=== PATIENT | female | born 1955 | race Caucasian/White ===

== ENCOUNTER 2016-06-28 19:47 | Inpatient (IN) | payer MEDICAID ==
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
[2016-06-28] MEDS ORDERED: NS 1000 ML 1,000 ML IV ONE (20:44)
[2016-06-28] MEDS ORDERED: ZOFRAN INJ 4 MG VIAL IVP ONE (20:44)
[2016-06-28] MEDS ORDERED: ZOFRAN INJ 4 MG VIAL ONE (20:45)
[2016-06-28] MEDS ORDERED: NS 1000 ML 1,000 ML ONE (20:45)
[2016-06-28 20:51] LABS: BILIRUBIN,URINE NEGATIVE (NEGATIVE); BLOOD/HEMOGLOBIN,URINE 3+ (NEGATIVE); GLUCOSE, URINE NEGATIVE (NEGATIVE); KETONES,URINE NEGATIVE (NEGATIVE); LEUKOCYTE ESTERASE ,URINE 2+ (NEGATIVE); NITRITES,URINE POSITIVE (NEGATIVE); PROTEIN,URINE 4+ (NEGATIVE); UROBILINOGEN,URINE NORMAL (NORMAL)
[2016-06-28 20:52] LABS: APPEARANCE,URINE CLOUDY (CLEAR); COLOR,URINE YELLOW (YELLOW)
[2016-06-28 21:02] LABS: AMORPHOUS SEDIMENT,UR 1+ /HPF (NEGATIVE); BACTERIA,URINE 2+ /HPF (NEGATIVE); SQUAMOUS EPITHELIAL CELL,UR FEW /HPF (NEGATIVE)
--- NOTE | 2016-06-28 21:27 | CT ---
EXAM: CT BRAIN WITHOUT CONTRAST INDICATION: Altered mental status COMPARISION: No Priors TECHNIQUE: Routine axial CT of the brain was performed without intravenous contrast. FINDINGS: There is moderate bilateral cortical atrophy. Patchy areas of low-attenuation are identified in the periventricular white matter bilaterally. There are multiple small lacunar infarcts in the right bas al ganglia . There is an area of encephalomalacia in the right occipital lobe consistent with a prev ious infarct. The ventricular system is not abnormally dilated. No intra or extra-axial mass or hemo rrhage. The drew-white junction is preserved. There is no evidence of subacute ischemic change. The basilar cisterns are clear. The skull is intact. The paranasal sinuses and mastoid air cells are clear. IMPRESSION: There is bilateral cortical atrophy. Periventricular and subcortical white matter changes are presen t bilaterally consistent with advanced small vessel vasculopathy. Old right basal ganglia lacunar infarcts an old right occipital lobe infarct with encephalomalacia a re present and described above. No acute abnormality identified. Reported By:
[2016-06-28 21:42] LABS: BASOPHILS % (AUTO) 0.2 % (0.2-1.0); HEMATOCRIT 30.9 % (36.0-47.0); HEMOGLOBIN 10.1 g/dL (12.0-16.0); MEAN CORPUSCULAR VOLUME 99.1 fL (80.0-100.0); MONOCYTES # (AUTO) 1.1 x10^3/uL (0.3-0.8); RED BLOOD COUNT 3.11 X10^6/uL (3.5-5.4); RED CELL DISTRIBUTION WIDTH 13.9 % (11.6-16.5)
[2016-06-28 21:48] LABS: LYMPHOCYTES # (AUTO) 1.7 X10^3/uL (1.3-2.9); LYMPHOCYTES % (AUTO) 8.9 % (21.0-51.0); MEAN CORPUSCULAR HEMOGLOBIN 32.5 pg (27.0-34.0); MEAN CORPUSCULAR HGB CONC 32.8 g/dL (33.0-35.0); MEAN PLATELET VOLUME 8.4 fL (7.4-11.0); MONOCYTES % (AUTO) 5.8 % (0.0-13.0); NEUTROPHILS # (AUTO) 16.6 x10^3/uL (2.2-4.8); NEUTROPHILS % (AUTO) 85.1 % (42.0-75.0); PLATELET COUNT 265 X10^3/uL (150.0-450.0); WHITE BLOOD COUNT 19.5 X10^3/uL (3.6-10.0)
[2016-06-28 22:00] LABS: ALBUMIN 2.5 g/dL (3.4-5.0); CALCIUM 9.5 mg/dL (8.5-10.1); CARBON DIOXIDE 21.8 mmol/L (21-32); COR CA(FOR HYPOALB) 10.7 mg/dL (8.5-10.1); CREATININE 3.23 mg/dL (0.55-1.02); TOTAL PROTEIN 6.7 g/dL (6.4-8.2)
[2016-06-28] MEDS ORDERED: NS 50 ML IV + SPIKE MINIBAG* 50 ML IV ONE (23:10)
[2016-06-28] MEDS ORDERED: FORTAZ or TAZICEF INJ ONE (23:10)
[2016-06-28] MEDS ORDERED: TORADOL 30 MG VIAL ONE (23:11)
[2016-06-28] MEDS ORDERED: TORADOL 30 MG VIAL IVP ONE (23:11)
[2016-06-28] MEDS ORDERED: TYLENOL 500 MG TAB EXTRA STRENGTH PO ONE (23:11)
[2016-06-28] MEDS: NS 1000 ML 1,000 ML IV SCH (23:12)
[2016-06-28] MEDS: FORTAZ or TAZICEF INJ 1 GM in NS 50 ML IV + SPIKE MINIBAG* 50 ML IV SCH (23:12)
[2016-06-28] MEDS ORDERED: TYLENOL 500 MG TAB EXTRA STRENGTH ONE (23:14)
--- NOTE | 2016-06-28 23:36 | RAD ---
EXAM: Chest X-ray INDICATION: Fever COMPARISION: Prior exam performed on September 27, 2015 TECHNIQUE: AP, single view FINDINGS: There is consolidation in the left lower lobe. The right lung is clear. The heart and mediastinum ap pear unremarkable. The regional skeleton is intact. IMPRESSION: Findings consistent left lower lobe pneumonia. Followup is recommended. Reported By:
[2016-06-29] MEDS ORDERED: TUSSIONEX PENNKINETIC SUSP PO PRN (00:30)
[2016-06-29] MEDS ORDERED: ZITHROMAX INJ 500 MG VIAL 500 MG in NS 250 ML IV 250 ML IV SCH (00:43)
[2016-06-29] MEDS ORDERED: SALINE 3% 15 ML NEB TX ONE (01:09)
[2016-06-29] MEDS ORDERED: SALINE 3% 15 ML NEB TX NEB ONE (01:17)
[2016-06-29] MEDS: DUONEB 0.5 MG/3 MG NEB SCH ×7 (01:22→21:48)
[2016-06-29 02:07] VITALS: BMI 19.5
[2016-06-29] MEDS ORDERED: ZITHROMAX INJ 500 MG VIAL IV ONE (02:08)
[2016-06-29] MEDS ORDERED: NS 250 ML IV 250 ML IV ONE (02:08)
[2016-06-29] MEDS: FORTAZ or TAZICEF INJ 1 GM in NS 50 ML IV + SPIKE MINIBAG* 50 ML IV SCH (06:24)
[2016-06-29 06:26] LABS: BASOPHILS % (AUTO) 0.3 % (0.2-1.0); HEMATOCRIT 28.6 % (36.0-47.0); HEMOGLOBIN 9.6 g/dL (12.0-16.0); LYMPHOCYTES # (AUTO) 2.2 X10^3/uL (1.3-2.9); MEAN CORPUSCULAR HGB CONC 33.4 g/dL (33.0-35.0); MEAN CORPUSCULAR VOLUME 98.7 fL (80.0-100.0); MEAN PLATELET VOLUME 8.7 fL (7.4-11.0); MONOCYTES # (AUTO) 0.7 x10^3/uL (0.3-0.8); MONOCYTES % (AUTO) 4.2 % (0.0-13.0); NEUTROPHILS # (AUTO) 13.7 x10^3/uL (2.2-4.8); NEUTROPHILS % (AUTO) 82.5 % (42.0-75.0); PLATELET COUNT 232 X10^3/uL (150.0-450.0); WHITE BLOOD COUNT 16.6 X10^3/uL (3.6-10.0)
[2016-06-29 06:53] LABS: CALCIUM 8.8 mg/dL (8.5-10.1); CARBON DIOXIDE 19.7 mmol/L (21-32); COR CA(FOR HYPOALB) 10.4 mg/dL (8.5-10.1); CREATININE 3.32 mg/dL (0.55-1.02); TOTAL PROTEIN 5.9 g/dL (6.4-8.2)
[2016-06-29 07:25] LABS: BAND NEUTROPHILS % 15 % (0-10); PLATELET MORPHOLOGY COMMENT NORMAL (NORMAL)
[2016-06-29] MEDS ORDERED: POTASSIUM CHLORIDE PO SCH (09:45)
[2016-06-29] MEDS: ROBITUSSIN DM PO SCH ×4 (09:50→21:27)
[2016-06-29] MEDS: ZANTAC PO SCH (09:50)
[2016-06-29] MEDS: PAXIL PO SCH (09:50)
[2016-06-29] MEDS: NORVASC TAB 5 MG PO SCH (09:50)
[2016-06-29] MEDS: ASPIRIN EC 81 MG PO SCH (09:50)
[2016-06-29] MEDS: PATIENT'S HOME MEDICATION SCH (09:51)
[2016-06-29] MEDS: NS 1000 ML 1,000 ML IV SCH ×2 (11:06→15:22)
[2016-06-29] MEDS ORDERED: TYLENOL 500 MG TAB EXTRA STRENGTH ONE (13:19)
[2016-06-29] MEDS ORDERED: TYLENOL 500 MG TAB EXTRA STRENGTH PO ONE (13:25)
[2016-06-29] MEDS: NICODERM PATCH 21 MG/24 HR TD SCH (15:22)
[2016-06-29] MEDS: TYLENOL 325 MG TAB PO PRN (19:33)
[2016-06-29] MEDS: ZITHROMAX INJ 500 MG VIAL 500 MG in NS 250 ML IV 250 ML IV SCH (21:26)
[2016-06-29] MEDS: CHECK PATCH XX SCH (21:29)
[2016-06-30] MEDS: DUONEB 0.5 MG/3 MG NEB SCH ×3 (01:09→08:31)
[2016-06-30] MEDS: NS 1000 ML 1,000 ML IV SCH ×4 (01:42→15:18)
[2016-06-30] MEDS: TYLENOL 325 MG TAB PO PRN ×4 (01:42→20:58)
[2016-06-30 05:24] LABS: BASOPHILS # (AUTO) 0.1 X10^3/uL (0.0-0.1); BASOPHILS % (AUTO) 0.3 % (0.2-1.0); HEMATOCRIT 27.3 % (36.0-47.0); LYMPHOCYTES # (AUTO) 1.7 X10^3/uL (1.3-2.9); LYMPHOCYTES % (AUTO) 8.4 % (21.0-51.0); MEAN CORPUSCULAR HEMOGLOBIN 32.4 pg (27.0-34.0); MEAN CORPUSCULAR HGB CONC 32.9 g/dL (33.0-35.0); MEAN CORPUSCULAR VOLUME 98.7 fL (80.0-100.0); MEAN PLATELET VOLUME 8.8 fL (7.4-11.0); MONOCYTES # (AUTO) 0.7 x10^3/uL (0.3-0.8); MONOCYTES % (AUTO) 3.5 % (0.0-13.0); NEUTROPHILS # (AUTO) 17.6 x10^3/uL (2.2-4.8); NEUTROPHILS % (AUTO) 87.8 % (42.0-75.0); PLATELET COUNT 243 X10^3/uL (150.0-450.0); RED BLOOD COUNT 2.77 X10^6/uL (3.5-5.4); RED CELL DISTRIBUTION WIDTH 14.5 % (11.6-16.5)
[2016-06-30 05:40] LABS: ALANINE AMINOTRANSFERASE 26 Units/L (12-78); ALBUMIN 1.8 g/dL (3.4-5.0); ALKALINE PHOSPHATASE 68 Units/L (46-116); ASPARTATE AMINO TRANSFERASE 23 Units/L (15-37); BLOOD UREA NITROGEN 46 mg/dL (7-18); CARBON DIOXIDE 18.6 mmol/L (21-32); CHLORIDE 113 mmol/L (98-107); COR CA(FOR HYPOALB) 9.8 mg/dL (8.5-10.1); CREATININE 2.99 mg/dL (0.55-1.02); GLUCOSE 97 mg/dL (65-99); SODIUM 144 mmol/L (136-145); eGFR BLACK RACES 21 (>60); eGFR NON BLACK RACES 17 (>60)
[2016-06-30] MEDS: ROBITUSSIN DM PO SCH ×4 (08:14→20:57)
[2016-06-30] MEDS: MICRO K EXTEN CAP 10 MEQ PO SCH (08:14)
[2016-06-30] MEDS: NORVASC TAB 5 MG PO SCH (08:14)
[2016-06-30] MEDS: ASPIRIN EC 81 MG PO SCH (08:14)
[2016-06-30] MEDS: PAXIL PO SCH (08:14)
[2016-06-30] MEDS: ZANTAC PO SCH (08:14)
[2016-06-30] MEDS: NICODERM PATCH 21 MG/24 HR TD SCH (08:15)
[2016-06-30] MEDS: CHECK PATCH XX SCH ×2 (08:21→20:56)
[2016-06-30] MEDS: PATIENT'S HOME MEDICATION SCH (08:29)
[2016-06-30] MEDS ORDERED: FORTAZ or TAZICEF INJ 1 GM in NS 50 ML IV + SPIKE MINIBAG* 50 ML IV SCH (09:00)
[2016-06-30] MEDS: COREG TAB 12.5 MG PO SCH ×2 (10:11→20:57)
[2016-06-30] MEDS: LYRICA CAP 100 MG PO SCH ×2 (11:06→20:58)
[2016-06-30] MEDS: XOPENEX 1.25 MG/3 ML NEB SCH ×3 (12:04→21:45)
[2016-06-30] MEDS ORDERED: LASIX IVP ONE (16:15)
[2016-06-30] MEDS: ZITHROMAX INJ 500 MG VIAL 500 MG in NS 250 ML IV 250 ML IV SCH (20:56)
[2016-06-30] MEDS: NS 1000 ML 1,000 ML IV PRN (22:21)
[2016-07-01] MEDS: XOPENEX 1.25 MG/3 ML NEB SCH ×4 (08:36→20:59)
[2016-07-01] MEDS ORDERED: TYGACIL 50 MG VIAL 100 MG in NS 100 ML IV 100 ML IV ONE (09:53)
[2016-07-01] MEDS: ZANTAC PO SCH (10:17)
[2016-07-01] MEDS: MICRO K EXTEN CAP 10 MEQ PO SCH (10:18)
[2016-07-01] MEDS: ROBITUSSIN DM PO SCH ×4 (10:18→20:21)
[2016-07-01] MEDS: ASPIRIN EC 81 MG PO SCH (10:18)
[2016-07-01] MEDS: PAXIL PO SCH (10:18)
[2016-07-01] MEDS: LYRICA CAP 100 MG PO SCH ×2 (10:18→20:21)
[2016-07-01] MEDS: NORVASC TAB 5 MG PO SCH (10:18)
[2016-07-01] MEDS: CHECK PATCH XX SCH ×2 (10:20→20:27)
[2016-07-01] MEDS: PATIENT'S HOME MEDICATION SCH (10:20)
[2016-07-01] MEDS: NICODERM PATCH 21 MG/24 HR TD SCH (10:26)
[2016-07-01] MEDS: NS 1000 ML 1,000 ML IV PRN ×2 (15:01→18:47)
[2016-07-01] MEDS: TYLENOL 325 MG TAB PO PRN ×2 (15:35→21:39)
[2016-07-01] MEDS: TYGACIL 50 MG VIAL 50 MG in NS 100 ML IV 100 ML IV SCH (18:55)
[2016-07-01] MEDS: ZITHROMAX INJ 500 MG VIAL 500 MG in NS 250 ML IV 250 ML IV SCH (20:21)
[2016-07-02 05:25] LABS: BASOPHILS # (AUTO) 0.1 X10^3/uL (0.0-0.1); BASOPHILS % (AUTO) 0.4 % (0.2-1.0); EOSINOPHILS % (AUTO) 0.2 % (0.9-2.9); HEMATOCRIT 28.6 % (36.0-47.0); HEMOGLOBIN 9.6 g/dL (12.0-16.0); LYMPHOCYTES # (AUTO) 2.4 X10^3/uL (1.3-2.9); LYMPHOCYTES % (AUTO) 12.6 % (21.0-51.0); MEAN CORPUSCULAR HEMOGLOBIN 32.7 pg (27.0-34.0); MEAN CORPUSCULAR HGB CONC 33.5 g/dL (33.0-35.0); MEAN CORPUSCULAR VOLUME 97.4 fL (80.0-100.0); MEAN PLATELET VOLUME 8.6 fL (7.4-11.0); MONOCYTES # (AUTO) 1.5 x10^3/uL (0.3-0.8); NEUTROPHILS # (AUTO) 14.9 x10^3/uL (2.2-4.8); NEUTROPHILS % (AUTO) 78.8 % (42.0-75.0); PLATELET COUNT 293 X10^3/uL (150.0-450.0); RED BLOOD COUNT 2.94 X10^6/uL (3.5-5.4); RED CELL DISTRIBUTION WIDTH 14.6 % (11.6-16.5)
[2016-07-02 05:37] LABS: ALBUMIN 1.8 g/dL (3.4-5.0); CALCIUM 7.7 mg/dL (8.5-10.1); CARBON DIOXIDE 16.6 mmol/L (21-32); COR CA(FOR HYPOALB) 9.5 mg/dL (8.5-10.1); CREATININE 2.69 mg/dL (0.55-1.02); TOTAL PROTEIN 6.3 g/dL (6.4-8.2)
[2016-07-02 06:10] LABS: BAND NEUTROPHILS % 2 % (0-10)
[2016-07-02 06:11] LABS: PLATELET MORPHOLOGY COMMENT NORMAL (NORMAL)
--- NOTE | 2016-07-02 08:05 | RAD ---
HISTORY: Pneumonia Study: Two views of the chest Comparison: 06/28/2016 Findings: Worsen reticular nodular opacities are seen throughout the bilateral lungs, most prominent in the le ft lower lobe and right upper lobe. There is suggestion of small mobile effusion on the right side v ersus atelectasis. No pneumothorax. The cardiac and mediastinal contours are stable. Soft tissues ar e intact. IMPRESSION: 1. Worsened bilateral reticular nodular opacities most prominent in the left lower lobe and right up per lobe. Findings suggest worsening pneumonia, consider atypical etiologies. Reported By:
[2016-07-02] MEDS: XOPENEX 1.25 MG/3 ML NEB SCH ×4 (08:47→20:31)
[2016-07-02] MEDS: NICODERM PATCH 21 MG/24 HR TD SCH (09:24)
[2016-07-02] MEDS: MICRO K EXTEN CAP 10 MEQ PO SCH (09:25)
[2016-07-02] MEDS: ROBITUSSIN DM PO SCH ×4 (09:25→21:10)
[2016-07-02] MEDS: LYRICA CAP 100 MG PO SCH ×2 (09:26→21:11)
[2016-07-02] MEDS: PAXIL PO SCH (09:26)
[2016-07-02] MEDS: ASPIRIN EC 81 MG PO SCH (09:27)
[2016-07-02] MEDS: NORVASC TAB 5 MG PO SCH (09:27)
[2016-07-02] MEDS: CHECK PATCH XX SCH ×2 (09:28→21:11)
[2016-07-02] MEDS: ZANTAC PO SCH (09:30)
[2016-07-02] MEDS: PATIENT'S HOME MEDICATION SCH (09:31)
[2016-07-02] MEDS: TYGACIL 50 MG VIAL 50 MG in NS 100 ML IV 100 ML IV SCH ×2 (09:32→21:11)
[2016-07-02] MEDS: TYLENOL 325 MG TAB PO PRN ×3 (09:42→23:05)
[2016-07-02] MEDS: NS 1000 ML 1,000 ML IV PRN (21:09)
[2016-07-02] MEDS: ZITHROMAX INJ 500 MG VIAL 500 MG in NS 250 ML IV 250 ML IV SCH (21:10)
[2016-07-03 05:31] LABS: ALBUMIN 1.8 g/dL (3.4-5.0); CALCIUM 7.6 mg/dL (8.5-10.1); CARBON DIOXIDE 17.2 mmol/L (21-32); COR CA(FOR HYPOALB) 9.4 mg/dL (8.5-10.1); CREATININE 2.83 mg/dL (0.55-1.02); TOTAL PROTEIN 6.6 g/dL (6.4-8.2)
[2016-07-03] MEDS: MAALOX or MYLANTA PO PRN ×2 (05:31→23:15)
[2016-07-03 06:34] LABS: BASOPHILS # (AUTO) 0.1 X10^3/uL (0.0-0.1); BASOPHILS % (AUTO) 0.5 % (0.2-1.0); EOSINOPHILS # (AUTO) 0.1 x10^3/uL (0.0-0.2); EOSINOPHILS % (AUTO) 0.6 % (0.9-2.9); HEMATOCRIT 30.1 % (36.0-47.0); HEMOGLOBIN 9.9 g/dL (12.0-16.0); LYMPHOCYTES # (AUTO) 3.3 X10^3/uL (1.3-2.9); LYMPHOCYTES % (AUTO) 15.7 % (21.0-51.0); MEAN CORPUSCULAR HEMOGLOBIN 32.5 pg (27.0-34.0); MEAN CORPUSCULAR HGB CONC 33.1 g/dL (33.0-35.0); MEAN CORPUSCULAR VOLUME 98.2 fL (80.0-100.0); MEAN PLATELET VOLUME 8.8 fL (7.4-11.0); MONOCYTES # (AUTO) 1.8 x10^3/uL (0.3-0.8); MONOCYTES % (AUTO) 8.7 % (0.0-13.0); NEUTROPHILS # (AUTO) 15.8 x10^3/uL (2.2-4.8); NEUTROPHILS % (AUTO) 74.5 % (42.0-75.0); PLATELET COUNT 337 X10^3/uL (150.0-450.0); RED BLOOD COUNT 3.06 X10^6/uL (3.5-5.4); RED CELL DISTRIBUTION WIDTH 14.6 % (11.6-16.5)
[2016-07-03 06:46] LABS: WHITE BLOOD COUNT 21.1 X10^3/uL (3.6-10.0)
[2016-07-03 07:07] LABS: BAND NEUTROPHILS % 2 % (0-10); PLATELET MORPHOLOGY COMMENT NORMAL (NORMAL)
[2016-07-03] MEDS: XOPENEX 1.25 MG/3 ML NEB SCH ×4 (09:37→20:32)
[2016-07-03] MEDS: TYGACIL 50 MG VIAL 50 MG in NS 100 ML IV 100 ML IV SCH ×2 (10:13→21:49)
[2016-07-03] MEDS: ROBITUSSIN DM PO SCH ×4 (10:14→21:50)
[2016-07-03] MEDS: NICODERM PATCH 21 MG/24 HR TD SCH (10:14)
[2016-07-03] MEDS: ZANTAC PO SCH (10:14)
[2016-07-03] MEDS: ASPIRIN EC 81 MG PO SCH (10:15)
[2016-07-03] MEDS: MICRO K EXTEN CAP 10 MEQ PO SCH (10:15)
[2016-07-03] MEDS: PAXIL PO SCH (10:15)
[2016-07-03] MEDS: LYRICA CAP 100 MG PO SCH ×2 (10:16→21:51)
[2016-07-03] MEDS: NORVASC TAB 5 MG PO SCH (10:16)
[2016-07-03] MEDS: PATIENT'S HOME MEDICATION SCH (10:16)
[2016-07-03] MEDS: CHECK PATCH XX SCH ×2 (10:17→22:00)
[2016-07-03] MEDS: TYLENOL 325 MG TAB PO PRN ×3 (10:22→22:06)
[2016-07-03] MEDS: NS 1000 ML 1,000 ML IV PRN (18:33)
[2016-07-03] MEDS: ZITHROMAX INJ 500 MG VIAL 500 MG in NS 250 ML IV 250 ML IV SCH (21:50)
[2016-07-04] MEDS: MAALOX or MYLANTA PO PRN ×3 (04:07→21:04)
[2016-07-04] MEDS: TYLENOL 325 MG TAB PO PRN ×4 (04:08→23:00)
[2016-07-04] MEDS: NS 1000 ML 1,000 ML IV PRN ×2 (04:09→21:09)
[2016-07-04 05:53] LABS: ALBUMIN 1.8 g/dL (3.4-5.0); CALCIUM 7.4 mg/dL (8.5-10.1); CARBON DIOXIDE 18.1 mmol/L (21-32); COR CA(FOR HYPOALB) 9.2 mg/dL (8.5-10.1); CREATININE 2.55 mg/dL (0.55-1.02); TOTAL PROTEIN 6.2 g/dL (6.4-8.2)
[2016-07-04 05:57] LABS: BASOPHILS # (AUTO) 0.1 X10^3/uL (0.0-0.1); BASOPHILS % (AUTO) 0.4 % (0.2-1.0); EOSINOPHILS # (AUTO) 0.2 x10^3/uL (0.0-0.2); HEMATOCRIT 28.8 % (36.0-47.0); HEMOGLOBIN 9.5 g/dL (12.0-16.0); LYMPHOCYTES # (AUTO) 3.1 X10^3/uL (1.3-2.9); LYMPHOCYTES % (AUTO) 16.1 % (21.0-51.0); MEAN CORPUSCULAR HEMOGLOBIN 32.4 pg (27.0-34.0); MEAN CORPUSCULAR HGB CONC 33.2 g/dL (33.0-35.0); MEAN CORPUSCULAR VOLUME 97.8 fL (80.0-100.0); MEAN PLATELET VOLUME 8.8 fL (7.4-11.0); MONOCYTES # (AUTO) 1.6 x10^3/uL (0.3-0.8); MONOCYTES % (AUTO) 8.4 % (0.0-13.0); NEUTROPHILS # (AUTO) 14.2 x10^3/uL (2.2-4.8); NEUTROPHILS % (AUTO) 74.1 % (42.0-75.0); PLATELET COUNT 359 X10^3/uL (150.0-450.0); RED BLOOD COUNT 2.94 X10^6/uL (3.5-5.4); RED CELL DISTRIBUTION WIDTH 14.6 % (11.6-16.5); WHITE BLOOD COUNT 19.2 X10^3/uL (3.6-10.0)
[2016-07-04 07:01] LABS: BAND NEUTROPHILS % 2 % (0-10); PLATELET MORPHOLOGY COMMENT NORMAL (NORMAL)
[2016-07-04] MEDS: XOPENEX 1.25 MG/3 ML NEB SCH ×4 (08:26→21:02)
--- NOTE | 2016-07-04 08:50 | PCM.PROG ---
Progress Note - Progress Note for Day of Date: 07/04/16 - Subjective Subjective: Patient is doing well this am. Her potassium is still low we are going to check a magnesium and continue potassium replacement. Her WBC is also still elevated we are going to continue IV antibiotics and repeat labs in the AM and perform a chest xray to evaluate her pneumonia - Past Medical Family Social History Past Med/Fam/Surg Hx: No changes since H&P Allergies: Allergies Codeine Allergy (Verified 06/28/16 20:08) Penicillin G Allergy (Verified 06/28/16 20:08) Promethazine [From Phenergan] Allergy (Verified 06/28/16 20:08) - Review of Systems ROS: No change since H&P - Vital Signs and I&O's Vital Signs: Temperature 98.3 F Pulse Rate [Left Brachial] 89 Pulse Rate [Brachial] 75 Pulse Rate 79 Respiratory Rate 22 Blood Pressure [Left Arm] 161/75 O2 Sat by Pulse Oximetry 90 Intake and Output: Intake & Output 07/01/16 07/02/16 07/03/16 07/04/16 11:59 11:59 11:59 11:59 Intake Total 3250 1910 6199 1960 Output Total 1100 3400 6000 4400 Balance 2150 -1490 199 -2440 - Physical Exam Oriented: Normal Eyes: Normal Ear: Normal Nose: Normal Throat: Normal Respiratory: Normal Cardiovascular: Normal : Normal Auscultation: Bowel Sounds: Normal Palpation: Normal Tenderness: Normal Skin: Normal Musculoskeletal: Normal Psychiatric: Normal Mood Description: Calm Affect: Normal Speech Pattern: Clear, Appropriate - Laboratory and Diagnostics Result Diagrams: 07/04/16 03:38 07/04/16 03:38 Labs: 06/29/16 22:26 Sputum - Expectorated Sputum Sputum Culture - Final 06/29/16 22:26 Sputum - Expectorated Sputum - Final Laboratory WBC 19.2 X10^3/uL (3.6-10.0) H 07/04/16 03:38 RBC 2.94 X10^6/uL (3.5-5.4) L 07/04/16 03:38 Hgb 9.5 g/dL (12.0-16.0) L 07/04/16 03:38 Hct 28.8 % (36.0-47.0) L 07/04/16 03:38 MCV 97.8 fL (80.0-100.0) 07/04/16 03:38 MCH 32.4 pg (27.0-34.0) 07/04/16 03:38 MCHC 33.2 g/dL (33.0-35.0) 07/04/16 03:38 RDW 14.6 % (11.6-16.5) 07/04/16 03:38 Plt Count 359 X10^3/uL (150.0-450.0) 07/04/16 03:38 Plt Count Comment Adequate (ADEQUATE) 07/04/16 03:38 MPV 8.8 fL (7.4-11.0) 07/04/16 03:38 Neut % 74.1 % (42.0-75.0) 07/04/16 03:38 Lymph % 16.1 % (21.0-51.0) L 07/04/16 03:38 [place] % 8.4 % (0.0-13.0) 07/04/16 03:38 Eos % 1.0 % (0.9-2.9) 07/04/16 03:38 Baso % 0.4 % (0.2-1.0) 07/04/16 03:38 Neut # 14.2 x10^3/uL (2.2-4.8) H 07/04/16 03:38 Lymph # 3.1 X10^3/uL (1.3-2.9) H 07/04/16 03:38 [place] # 1.6 x10^3/uL (0.3-0.8) H 07/04/16 03:38 Eos # 0.2 x10^3/uL (0.0-0.2) 07/04/16 03:38 Baso # 0.1 X10^3/uL (0.0-0.1) 07/04/16 03:38 Absolute Nucleated RBC 0.0 /100WBC 07/04/16 03:38 Total Counted 100 07/04/16 03:38 Neutrophils % (Manual) 72 % (39-76) 07/04/16 03:38 Band Neutrophils % 2 % (0-10) 07/04/16 03:38 Lymphocytes % (Manual) 14 % (13-43) 07/04/16 03:38 Monocytes % (Manual) 8 % (4-9) 07/04/16 03:38 Eosinophils % (Manual) 4 % (0-6) 07/04/16 03:38 Plt Morphology Comment Normal (NORMAL) 07/04/16 03:38 RBC Morphology Normal (NORMAL) 07/04/16 03:38 Sodium 146 mmol/L (136-145) H 07/04/16 03:38 Corrected Sodium 147 mmol/L (136-145) H 07/04/16 03:38 Potassium 3.0 mmol/L (3.5-5.1) L* 07/04/16 03:38 Chloride 112 mmol/L (98-107) H 07/04/16 03:38 Carbon Dioxide 18.1 mmol/L (21-32) L 07/04/16 03:38 BUN 53 mg/dL (7-18) H 07/04/16 03:38 Creatinine 2.55 mg/dL (0.55-1.02) H 07/04/16 03:38 Est GFR (MDRD) Af Amer 25 (>60) L 07/04/16 03:38 Est GFR (MDRD) Non-Af 20 (>60) L 07/04/16 03:38 Glucose 154 mg/dL (65-99) H 07/04/16 03:38 Calcium 7.4 mg/dL (8.5-10.1) L 07/04/16 03:38 Corrected Calcium 9.2 mg/dL (8.5-10.1) 07/04/16 03:38 Total Bilirubin 0.20 mg/dL (0.2-1.0) 07/04/16 03:38 AST 14 Units/L (15-37) L 07/04/16 03:38 ALT 19 Units/L (12-78) 07/04/16 03:38 Alkaline Phosphatase 108 Units/L (46-116) 07/04/16 03:38 Total Protein 6.2 g/dL (6.4-8.2) L 07/04/16 03:38 Albumin 1.8 g/dL (3.4-5.0) L 07/04/16 03:38 Globulin 4.4 g/dL (2.5-4.5) 07/04/16 03:38 Albumin/Globulin Ratio 0.4 Ratio (1.1-2.1) L 07/04/16 03:38 Amylase 28 Units/L (25-115) 06/28/16 21:20 Lipase 57 Units/L (73-393) L 06/28/16 21:20 Specimen Type Catherized urine 06/28/16 20:22 Urine Color Yellow (YELLOW) 06/28/16 20:22 Urine Appearance Cloudy (CLEAR) 06/28/16 20:22 Urine pH 6.0 (5.0 - 8.0) 06/28/16 20:22 Ur Specific [place] 1.010 (1.000-1.030) 06/28/16 20:22 Urine Protein 4+ (NEGATIVE) 06/28/16 20:22 Urine Glucose (UA) Negative (NEGATIVE) 06/28/16 20:22 Urine Ketones Negative (NEGATIVE) 06/28/16 20:22 Urine Occult Blood 3+ (NEGATIVE) 06/28/16 20:22 Urine Nitrite Positive (NEGATIVE) 06/28/16 20:22 Urine Bilirubin Negative (NEGATIVE) 06/28/16 20:22 Urine Urobilinogen Normal (NORMAL) 06/28/16 20:22 Ur Leukocyte Esterase 2+ (NEGATIVE) 06/28/16 20:22 Urine RBC 01 - 03 /HPF (NEGATIVE) 06/28/16 20:22 Urine WBC 20 - 35 with clumps /HPF (NEGATIVE) 06/28/16 20:22 Ur Squamous Epith Cells Few /HPF (NEGATIVE) 06/28/16 20:22 Amorphous Sediment 1+ /HPF (NEGATIVE) 06/28/16 20:22 Urine Bacteria 2+ /HPF (NEGATIVE) 06/28/16 20:22 Ur Culture Indicated? Yes/culture set up 06/28/16 20:22 Influenza A (H1N1) PCR Not detected (NOT DETECT) 06/28/16 21:42 Influenza Type A (PCR) Negative (NEGATIVE) 06/28/16 21:42 Influenza Type B (PCR) Negative (NEGATIVE) 06/28/16 21:42 - Plan (1) Hypokalemia Status: Acute Plan: check magnesium and continue potassium replacement protocol (2) LLL pneumonia Status: Acute Qualifiers: Pneumonia type: due to unspecified organism Aspiration pneumonia type: A Qualified Code(s): J18.1 - Lobar pneumonia, unspecified organism Plan: continue IV Antibiotics, Repeat labs in and chest xray
[2016-07-04] MEDS: NORVASC TAB 5 MG PO SCH (10:03)
[2016-07-04] MEDS: LYRICA CAP 100 MG PO SCH ×2 (10:03→21:03)
[2016-07-04] MEDS: ROBITUSSIN DM PO SCH ×4 (10:04→21:03)
[2016-07-04] MEDS: TYGACIL 50 MG VIAL 50 MG in NS 100 ML IV 100 ML IV SCH ×2 (10:04→21:04)
[2016-07-04] MEDS: PAXIL PO SCH (10:04)
[2016-07-04] MEDS: MICRO K EXTEN CAP 10 MEQ PO SCH (10:04)
[2016-07-04] MEDS: ASPIRIN EC 81 MG PO SCH (10:04)
[2016-07-04] MEDS: NICODERM PATCH 21 MG/24 HR TD SCH (10:05)
[2016-07-04] MEDS: PATIENT'S HOME MEDICATION SCH (10:05)
[2016-07-04] MEDS: CHECK PATCH XX SCH ×2 (10:05→21:05)
[2016-07-04] MEDS: ZANTAC PO SCH (10:10)
[2016-07-04] MEDS: K-DUR TAB 20 MEQ PO SCH (15:27)
[2016-07-04] MEDS: ZITHROMAX INJ 500 MG VIAL 500 MG in NS 250 ML IV 250 ML IV SCH (21:04)
[2016-07-05] MEDS: MAALOX or MYLANTA PO PRN ×3 (01:20→19:41)
[2016-07-05 06:30] LABS: BASOPHILS # (AUTO) 0.1 X10^3/uL (0.0-0.1); BASOPHILS % (AUTO) 0.7 % (0.2-1.0); EOSINOPHILS # (AUTO) 0.3 x10^3/uL (0.0-0.2); EOSINOPHILS % (AUTO) 1.8 % (0.9-2.9); HEMATOCRIT 25.8 % (36.0-47.0); HEMOGLOBIN 8.7 g/dL (12.0-16.0); LYMPHOCYTES # (AUTO) 3.7 X10^3/uL (1.3-2.9); MEAN CORPUSCULAR HEMOGLOBIN 32.7 pg (27.0-34.0); MEAN CORPUSCULAR HGB CONC 33.7 g/dL (33.0-35.0); MEAN CORPUSCULAR VOLUME 96.9 fL (80.0-100.0); MEAN PLATELET VOLUME 8.4 fL (7.4-11.0); MONOCYTES # (AUTO) 1.1 x10^3/uL (0.3-0.8); MONOCYTES % (AUTO) 6.7 % (0.0-13.0); NEUTROPHILS # (AUTO) 11.7 x10^3/uL (2.2-4.8); NEUTROPHILS % (AUTO) 68.8 % (42.0-75.0); PLATELET COUNT 354 X10^3/uL (150.0-450.0); RED BLOOD COUNT 2.66 X10^6/uL (3.5-5.4); RED CELL DISTRIBUTION WIDTH 14.3 % (11.6-16.5)
[2016-07-05 06:47] LABS: ALANINE AMINOTRANSFERASE 18 Units/L (12-78); ALBUMIN 1.6 g/dL (3.4-5.0); ALKALINE PHOSPHATASE 120 Units/L (46-116); ASPARTATE AMINO TRANSFERASE 17 Units/L (15-37); BLOOD UREA NITROGEN 55 mg/dL (7-18); CALCIUM 7.2 mg/dL (8.5-10.1); CARBON DIOXIDE 18.3 mmol/L (21-32); CHLORIDE 114 mmol/L (98-107); COR CA(FOR HYPOALB) 9.1 mg/dL (8.5-10.1); CREATININE 2.49 mg/dL (0.55-1.02); GLUCOSE 94 mg/dL (65-99); MAGNESIUM 1.8 mg/dL (1.7-2.9); SODIUM 145 mmol/L (136-145); TOTAL PROTEIN 5.5 g/dL (6.4-8.2); eGFR BLACK RACES 25 (>60); eGFR NON BLACK RACES 21 (>60)
[2016-07-05 07:37] LABS: BAND NEUTROPHILS % 3 % (0-10)
[2016-07-05 07:38] LABS: METAMYELOCYTES % 1; PLATELET MORPHOLOGY COMMENT NORMAL (NORMAL)
[2016-07-05] MEDS: ASPIRIN EC 81 MG PO SCH (08:37)
[2016-07-05] MEDS: LYRICA CAP 100 MG PO SCH ×2 (08:37→20:40)
[2016-07-05] MEDS: PAXIL PO SCH (08:37)
[2016-07-05] MEDS: TYGACIL 50 MG VIAL 50 MG in NS 100 ML IV 100 ML IV SCH ×2 (08:37→19:41)
[2016-07-05] MEDS: NORVASC TAB 5 MG PO SCH (08:37)
[2016-07-05] MEDS: ZANTAC PO SCH (08:38)
[2016-07-05] MEDS: ROBITUSSIN DM PO SCH ×4 (08:38→20:42)
[2016-07-05] MEDS: NICODERM PATCH 21 MG/24 HR TD SCH (08:38)
[2016-07-05] MEDS: K-DUR TAB 20 MEQ PO SCH (08:38)
[2016-07-05] MEDS: TYLENOL 325 MG TAB PO PRN ×3 (08:38→23:00)
[2016-07-05] MEDS: CHECK PATCH XX SCH ×2 (08:39→20:41)
[2016-07-05] MEDS: PATIENT'S HOME MEDICATION SCH (08:39)
[2016-07-05] MEDS: XOPENEX 1.25 MG/3 ML NEB SCH ×4 (08:50→20:22)
--- NOTE | 2016-07-05 13:01 | RAD ---
HISTORY: Pneumonia Study: Two-view chest Comparison: July 02, 2016 Findings: The trachea is midline. The cardiac silhouette is unremarkable. Lungs demonstrate persistent inter stitial infiltrates slightly improved in the right upper and left upper lobes. There is persistent l eft lower lobe airspace opacity with small effusion which is unchanged.. The bony thorax is unremar kable. IMPRESSION: 1. Improved interstitial infiltrates in the upper lobes with persistent left lower lobe airspace di sease and small effusion Reported By:
[2016-07-05] MEDS: ZITHROMAX INJ 500 MG VIAL 500 MG in NS 250 ML IV 250 ML IV SCH (20:40)
[2016-07-05] MEDS: ZOFRAN INJ 4 MG VIAL IVP PRN (23:16)
[2016-07-06 05:59] LABS: BASOPHILS # (AUTO) 0.2 X10^3/uL (0.0-0.1); BASOPHILS % (AUTO) 0.9 % (0.2-1.0); EOSINOPHILS # (AUTO) 0.2 x10^3/uL (0.0-0.2); EOSINOPHILS % (AUTO) 0.9 % (0.9-2.9); HEMATOCRIT 24.2 % (36.0-47.0); HEMOGLOBIN 8.2 g/dL (12.0-16.0); LYMPHOCYTES # (AUTO) 3.6 X10^3/uL (1.3-2.9); MEAN CORPUSCULAR HEMOGLOBIN 32.8 pg (27.0-34.0); MEAN CORPUSCULAR HGB CONC 33.9 g/dL (33.0-35.0); MEAN CORPUSCULAR VOLUME 96.7 fL (80.0-100.0); MEAN PLATELET VOLUME 8.6 fL (7.4-11.0); MONOCYTES % (AUTO) 5.6 % (0.0-13.0); NEUTROPHILS # (AUTO) 12.3 x10^3/uL (2.2-4.8); NEUTROPHILS % (AUTO) 71.6 % (42.0-75.0); PLATELET COUNT 370 X10^3/uL (150.0-450.0); RED BLOOD COUNT 2.51 X10^6/uL (3.5-5.4); RED CELL DISTRIBUTION WIDTH 14.2 % (11.6-16.5); WHITE BLOOD COUNT 17.2 X10^3/uL (3.6-10.0)
[2016-07-06 06:22] LABS: ALBUMIN 1.5 g/dL (3.4-5.0); CALCIUM 7.5 mg/dL (8.5-10.1); CARBON DIOXIDE 20.9 mmol/L (21-32); COR CA(FOR HYPOALB) 9.5 mg/dL (8.5-10.1); CREATININE 2.47 mg/dL (0.55-1.02); TOTAL PROTEIN 5.4 g/dL (6.4-8.2)
[2016-07-06] MEDS: NORVASC TAB 5 MG PO SCH (08:47)
[2016-07-06] MEDS: ZOFRAN INJ 4 MG VIAL IVP PRN ×3 (08:47→21:57)
[2016-07-06] MEDS: K-DUR TAB 20 MEQ PO SCH (08:47)
[2016-07-06] MEDS: NICODERM PATCH 21 MG/24 HR TD SCH (08:47)
[2016-07-06] MEDS: ASPIRIN EC 81 MG PO SCH (08:47)
[2016-07-06] MEDS: LYRICA CAP 100 MG PO SCH ×2 (08:47→21:14)
[2016-07-06] MEDS: ROBITUSSIN DM PO SCH ×6 (08:47→21:12)
[2016-07-06] MEDS: ZANTAC PO SCH (08:47)
[2016-07-06] MEDS: PAXIL PO SCH (08:47)
[2016-07-06] MEDS: TYGACIL 50 MG VIAL 50 MG in NS 100 ML IV 100 ML IV SCH ×2 (08:48→19:55)
[2016-07-06] MEDS: XOPENEX 1.25 MG/3 ML NEB SCH ×4 (08:50→20:40)
[2016-07-06] MEDS: PATIENT'S HOME MEDICATION SCH (09:00)
[2016-07-06] MEDS: CHECK PATCH XX SCH ×2 (09:00→21:15)
[2016-07-06] MEDS: NS 1000 ML 1,000 ML IV PRN (15:57)
[2016-07-06] MEDS: TYLENOL 325 MG TAB PO PRN (19:56)
[2016-07-06] MEDS: ZITHROMAX INJ 500 MG VIAL 500 MG in NS 250 ML IV 250 ML IV SCH (21:09)
[2016-07-07] MEDS: TYLENOL 325 MG TAB PO PRN ×3 (03:30→21:44)
[2016-07-07] MEDS: XOPENEX 1.25 MG/3 ML NEB SCH ×4 (08:37→20:55)
[2016-07-07] MEDS: PATIENT'S HOME MEDICATION SCH (09:00)
[2016-07-07] MEDS: ROBITUSSIN DM PO SCH ×4 (09:39→21:44)
[2016-07-07] MEDS: TYGACIL 50 MG VIAL 50 MG in NS 100 ML IV 100 ML IV SCH ×2 (09:39→21:43)
[2016-07-07] MEDS: NICODERM PATCH 21 MG/24 HR TD SCH (09:40)
[2016-07-07] MEDS: K-DUR TAB 20 MEQ PO SCH (09:41)
[2016-07-07] MEDS: LYRICA CAP 100 MG PO SCH ×2 (09:41→21:44)
[2016-07-07] MEDS: ASPIRIN EC 81 MG PO SCH (09:42)
[2016-07-07] MEDS: PAXIL PO SCH (09:42)
[2016-07-07] MEDS: NORVASC TAB 5 MG PO SCH (09:42)
[2016-07-07] MEDS: ZANTAC PO SCH (09:42)
[2016-07-07] MEDS: CHECK PATCH XX SCH ×2 (10:00→21:44)
[2016-07-07] MEDS: NS 1000 ML 1,000 ML IV PRN (11:41)
[2016-07-07] MEDS: MAALOX or MYLANTA PO PRN (17:25)
[2016-07-07] MEDS: ZITHROMAX INJ 500 MG VIAL 500 MG in NS 250 ML IV 250 ML IV SCH (21:44)
[2016-07-08] MEDS: ZOFRAN INJ 4 MG VIAL IVP PRN (00:38)
[2016-07-08] MEDS: MAALOX or MYLANTA PO PRN (00:38)
[2016-07-08] MEDS: NS 1000 ML 1,000 ML IV PRN (04:09)
[2016-07-08] MEDS: TYLENOL 325 MG TAB PO PRN ×2 (05:05→10:39)
[2016-07-08 05:16] LABS: BASOPHILS # (AUTO) 0.2 X10^3/uL (0.0-0.1); EOSINOPHILS # (AUTO) 0.2 x10^3/uL (0.0-0.2); EOSINOPHILS % (AUTO) 1.1 % (0.9-2.9); HEMATOCRIT 25.3 % (36.0-47.0); HEMOGLOBIN 8.5 g/dL (12.0-16.0); LYMPHOCYTES # (AUTO) 3.9 X10^3/uL (1.3-2.9); LYMPHOCYTES % (AUTO) 24.6 % (21.0-51.0); MEAN CORPUSCULAR HEMOGLOBIN 32.4 pg (27.0-34.0); MEAN CORPUSCULAR HGB CONC 33.7 g/dL (33.0-35.0); MEAN PLATELET VOLUME 8.6 fL (7.4-11.0); NEUTROPHILS # (AUTO) 10.8 x10^3/uL (2.2-4.8); NEUTROPHILS % (AUTO) 67.3 % (42.0-75.0); PLATELET COUNT 435 X10^3/uL (150.0-450.0); RED BLOOD COUNT 2.63 X10^6/uL (3.5-5.4); RED CELL DISTRIBUTION WIDTH 14.2 % (11.6-16.5); WHITE BLOOD COUNT 16.1 X10^3/uL (3.6-10.0)
[2016-07-08 05:29] LABS: ALANINE AMINOTRANSFERASE 33 Units/L (12-78); ALBUMIN 1.6 g/dL (3.4-5.0); ALKALINE PHOSPHATASE 178 Units/L (46-116); ASPARTATE AMINO TRANSFERASE 35 Units/L (15-37); BLOOD UREA NITROGEN 47 mg/dL (7-18); CALCIUM 7.9 mg/dL (8.5-10.1); CARBON DIOXIDE 21.1 mmol/L (21-32); CHLORIDE 114 mmol/L (98-107); COR CA(FOR HYPOALB) 9.8 mg/dL (8.5-10.1); CREATININE 2.91 mg/dL (0.55-1.02); GLUCOSE 91 mg/dL (65-99); SODIUM 145 mmol/L (136-145); TOTAL PROTEIN 5.8 g/dL (6.4-8.2); eGFR BLACK RACES 21 (>60); eGFR NON BLACK RACES 18 (>60)
--- NOTE | 2016-07-08 07:01 | RAD ---
HISTORY: Follow up pneumonia Study: Chest two-view Comparison: July 05, 2016 Findings: The heart is within normal limits in size. The cora are normal. The right lung and left upper lung f ields are clear. Perihilar infiltrate remains in the left lower lobe. Left pleural effusion is sligh tly increased when compared with the prior examination. IMPRESSION: Right lung clear as is the left upper lobe Persistent left perihilar lower lobe infiltrate with slight increase left pleural effusion Reported By:
[2016-07-08] MEDS: XOPENEX 1.25 MG/3 ML NEB SCH (08:49)
[2016-07-08] MEDS: K-DUR TAB 20 MEQ PO SCH (09:09)
[2016-07-08] MEDS: LYRICA CAP 100 MG PO SCH (09:09)
[2016-07-08] MEDS: PAXIL PO SCH (09:09)
[2016-07-08] MEDS: NICODERM PATCH 21 MG/24 HR TD SCH (09:09)
[2016-07-08] MEDS: ZANTAC PO SCH (09:10)
[2016-07-08] MEDS: TYGACIL 50 MG VIAL 50 MG in NS 100 ML IV 100 ML IV SCH (09:10)
[2016-07-08] MEDS: ASPIRIN EC 81 MG PO SCH (09:10)
[2016-07-08] MEDS: ROBITUSSIN DM PO SCH (09:10)
[2016-07-08] MEDS: NORVASC TAB 5 MG PO SCH (09:10)
[2016-07-08 09:14] VITALS: BP 158/77
[2016-07-08] MEDS: PATIENT'S HOME MEDICATION SCH (09:16)
[2016-07-08] MEDS: CHECK PATCH XX SCH (09:17)
[2016-07-08] MEDS ORDERED: COREG TAB 25 MG PO SCH (10:00)
== END 2016-07-08 12:35 | disposition home or self-care (01) | DRG 193 ==
LOC: ER 19:47 → MED/SURG 06-29 00:07
PROVIDERS: ADMIT Internal Medicine; ATTEND Obstetrics & Gynecology Obstetrics
DX: J18.1 Lobar pneumonia, unspecified organism (principal); J81.0 Acute pulmonary edema; N10 Acute pyelonephritis; J44.1 Chronic obstructive pulmonary disease with (acute) exacerbation; R40.4 Transient alteration of awareness; E86.0 Dehydration; R11.2 Nausea with vomiting, unspecified; R53.1 Weakness; I10 Essential (primary) hypertension; N28.89 Other specified disorders of kidney and ureter; R94.4 Abnormal results of kidney function studies; D72.828 Other elevated white blood cell count; E87.6 Hypokalemia; R06.02 Shortness of breath; D63.8 Anemia in other chronic diseases classified elsewhere; B96.29 Other Escherichia coli [E. coli] as the cause of diseases classified elsewhere
CPT/HCPCS: 36415; 51702; 70450; 71010; 71020; 80053; 81001; 82150; 83690; 83735; 85025; 87040; 87070; 87086; 87088; 87186; 87205; 87502; 87503; 94640; 94760; 96365; 96367; 96374; 96375; 99233; 99284; A4222; J0456; J0713; J1885; J1940; J2405; J7620

== ENCOUNTER → 2016-12-30 | Outpatient (CLI) | payer MEDICAID ==
[2016-12-30 12:38] LABS: BASOPHILS % (AUTO) 0.5 % (0.2-1.0); EOSINOPHILS # (AUTO) 0.1 x10^3/uL (0.0-0.2); EOSINOPHILS % (AUTO) 1.2 % (0.9-2.9); HEMATOCRIT 35.4 % (36.0-47.0); LYMPHOCYTES # (AUTO) 2.6 X10^3/uL (1.3-2.9); LYMPHOCYTES % (AUTO) 28.7 % (21.0-51.0); MEAN CORPUSCULAR HEMOGLOBIN 34.5 pg (27.0-34.0); MEAN CORPUSCULAR HGB CONC 33.9 g/dL (33.0-35.0); MEAN CORPUSCULAR VOLUME 101.8 fL (80.0-100.0); MEAN PLATELET VOLUME 7.7 fL (7.4-11.0); MONOCYTES # (AUTO) 0.6 x10^3/uL (0.3-0.8); MONOCYTES % (AUTO) 6.2 % (0.0-13.0); NEUTROPHILS # (AUTO) 5.7 x10^3/uL (2.2-4.8); NEUTROPHILS % (AUTO) 63.4 % (42.0-75.0); PLATELET COUNT 415 X10^3/uL (150.0-450.0); RED BLOOD COUNT 3.48 X10^6/uL (3.5-5.4); RED CELL DISTRIBUTION WIDTH 14.7 % (11.6-16.5)
[2016-12-30 12:53] LABS: ALANINE AMINOTRANSFERASE 13 Units/L (12-78); ALBUMIN 3.5 g/dL (3.4-5.0); ALKALINE PHOSPHATASE 58 Units/L (46-116); ASPARTATE AMINO TRANSFERASE 11 Units/L (15-37); BLOOD UREA NITROGEN 48 mg/dL (7-18); CALCIUM 11.7 mg/dL (8.5-10.1); CARBON DIOXIDE 22.1 mmol/L (21-32); CHLORIDE 109 mmol/L (98-107); CREATININE 3.87 mg/dL (0.55-1.02); MAGNESIUM 1.6 mg/dL (1.7-2.9); SODIUM 143 mmol/L (136-145); TOTAL PROTEIN 7.6 g/dL (6.4-8.2); eGFR BLACK RACES 15 (>60); eGFR NON BLACK RACES 13 (>60)
== END ==
LOC: LAB 11:50
PROVIDERS: ATTEND Obstetrics & Gynecology Obstetrics
DX: M62.838 Other muscle spasm (principal); R79.89 Other specified abnormal findings of blood chemistry
CPT/HCPCS: 36415; 80053; 82330; 82728; 83735; 85025

== ENCOUNTER 2017-05-08 16:12 | Observation (INO) | payer MEDICAID ==
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
[2017-05-08 17:05] LABS: BASOPHILS # (AUTO) 0.1 X10^3/uL (0.0-0.1); BASOPHILS % (AUTO) 0.7 % (0.2-1.0); EOSINOPHILS # (AUTO) 0.2 x10^3/uL (0.0-0.2); EOSINOPHILS % (AUTO) 1.7 % (0.9-2.9); HEMATOCRIT 35.2 % (36.0-47.0); HEMOGLOBIN 11.7 g/dL (12.0-16.0); LYMPHOCYTES # (AUTO) 2.7 X10^3/uL (1.3-2.9); LYMPHOCYTES % (AUTO) 22.4 % (21.0-51.0); MEAN CORPUSCULAR HEMOGLOBIN 34.2 pg (27.0-34.0); MEAN CORPUSCULAR HGB CONC 33.2 g/dL (33.0-35.0); MEAN CORPUSCULAR VOLUME 102.9 fL (80.0-100.0); MEAN PLATELET VOLUME 8.4 fL (7.4-11.0); MONOCYTES # (AUTO) 0.9 x10^3/uL (0.3-0.8); MONOCYTES % (AUTO) 7.6 % (0.0-13.0); NEUTROPHILS # (AUTO) 8.2 x10^3/uL (2.2-4.8); NEUTROPHILS % (AUTO) 67.6 % (42.0-75.0); PLATELET COUNT 323 X10^3/uL (150.0-450.0); RED BLOOD COUNT 3.42 X10^6/uL (3.5-5.4); RED CELL DISTRIBUTION WIDTH 14.6 % (11.6-16.5); WHITE BLOOD COUNT 12.1 X10^3/uL (3.6-10.0)
[2017-05-08 17:12] LABS: ALANINE AMINOTRANSFERASE 15 Units/L (12-78); ALBUMIN 3.6 g/dL (3.4-5.0); ALKALINE PHOSPHATASE 80 Units/L (46-116); ASPARTATE AMINO TRANSFERASE 16 Units/L (15-37); BLOOD UREA NITROGEN 42 mg/dL (7-18); CALCIUM 10.5 mg/dL (8.5-10.1); CARBON DIOXIDE 18.2 mmol/L (21-32); CHLORIDE 108 mmol/L (98-107); CREATININE 3.77 mg/dL (0.55-1.02); SODIUM 140 mmol/L (136-145); TOTAL PROTEIN 7.6 g/dL (6.4-8.2); eGFR BLACK RACES 16 (>60); eGFR NON BLACK RACES 13 (>60)
--- NOTE | 2017-05-08 17:21 | RAD ---
History: Abdominal pain Study: Acute abdominal series Findings: The lungs are clear and the heart and mediastinum are unremarkable. There is no pleural eff usion or vascular congestion. The bowel gas pattern is unremarkable. There is no free air. There is heavy atherosclerotic calcifica tion in the wall of the abdominal aorta and common iliac arteries without aneurysmal dilatation. Impression: No acute disease demonstrated Reported By:
[2017-05-08] MEDS ORDERED: NS 1000 ML 1,000 ML IV ONE (17:34)
[2017-05-08] MEDS ORDERED: NS 1000 ML 1,000 ML ONE (17:35)
[2017-05-08 18:03] LABS: BILIRUBIN,URINE NEGATIVE (NEGATIVE); BLOOD/HEMOGLOBIN,URINE 1+ (NEGATIVE); GLUCOSE, URINE NEGATIVE (NEGATIVE); KETONES,URINE NEGATIVE (NEGATIVE); LEUKOCYTE ESTERASE ,URINE 2+ (NEGATIVE); NITRITES,URINE POSITIVE (NEGATIVE); PROTEIN,URINE 4+ (NEGATIVE); UROBILINOGEN,URINE NORMAL (NORMAL)
[2017-05-08 18:21] LABS: APPEARANCE,URINE HAZY (CLEAR); BACTERIA,URINE 2+ /HPF (NEGATIVE); COLOR,URINE YELLOW (YELLOW); SQUAMOUS EPITHELIAL CELL,UR FEW /HPF (NEGATIVE)
[2017-05-08] MEDS ORDERED: TYLENOL 500 MG TAB EXTRA STRENGTH PO PRN (19:15)
[2017-05-08] MEDS ORDERED: GENTAMICIN INJ 80 MG in NS 100 ML IV 100 ML IV ONE (19:19)
[2017-05-08] MEDS ORDERED: NS 100 ML IV 100 ML IV ONE (19:41)
[2017-05-08] MEDS ORDERED: GENTAMICIN INJ ONE (19:41)
[2017-05-08] MEDS: NS 1000 ML 1,000 ML IV SCH (19:49)
[2017-05-08] MEDS ORDERED: CIPRO IV 400 MG PREMIX* 400 MG/200 ML IV.SOLN. IV SCH (21:00)
[2017-05-08 22:01] VITALS: BMI 17.6
[2017-05-08] MEDS ORDERED: MAALOX or MYLANTA PO PRN (22:03)
[2017-05-08] MEDS ORDERED: VISTARIL PO PRN (22:22)
[2017-05-09] MEDS: NS 1000 ML 1,000 ML IV SCH ×3 (02:00→08:50)
[2017-05-09] MEDS ORDERED: ZOFRAN INJ 4 MG VIAL IVP PRN (03:10)
[2017-05-09 06:38] LABS: BASOPHILS # (AUTO) 0.1 X10^3/uL (0.0-0.1); BASOPHILS % (AUTO) 0.5 % (0.2-1.0); EOSINOPHILS # (AUTO) 0.2 x10^3/uL (0.0-0.2); EOSINOPHILS % (AUTO) 1.7 % (0.9-2.9); HEMATOCRIT 30.7 % (36.0-47.0); HEMOGLOBIN 10.3 g/dL (12.0-16.0); LYMPHOCYTES # (AUTO) 3.3 X10^3/uL (1.3-2.9); LYMPHOCYTES % (AUTO) 29.1 % (21.0-51.0); MEAN CORPUSCULAR HEMOGLOBIN 34.6 pg (27.0-34.0); MEAN CORPUSCULAR HGB CONC 33.7 g/dL (33.0-35.0); MEAN CORPUSCULAR VOLUME 102.5 fL (80.0-100.0); MEAN PLATELET VOLUME 8.6 fL (7.4-11.0); MONOCYTES # (AUTO) 0.9 x10^3/uL (0.3-0.8); MONOCYTES % (AUTO) 8.3 % (0.0-13.0); NEUTROPHILS # (AUTO) 6.8 x10^3/uL (2.2-4.8); NEUTROPHILS % (AUTO) 60.4 % (42.0-75.0); PLATELET COUNT 307 X10^3/uL (150.0-450.0); RED BLOOD COUNT 2.99 X10^6/uL (3.5-5.4); RED CELL DISTRIBUTION WIDTH 14.8 % (11.6-16.5); WHITE BLOOD COUNT 11.2 X10^3/uL (3.6-10.0)
[2017-05-09 06:53] LABS: ALANINE AMINOTRANSFERASE 14 Units/L (12-78); ALKALINE PHOSPHATASE 66 Units/L (46-116); ASPARTATE AMINO TRANSFERASE 17 Units/L (15-37); BLOOD UREA NITROGEN 32 mg/dL (7-18); CALCIUM 8.6 mg/dL (8.5-10.1); CARBON DIOXIDE 16.3 mmol/L (21-32); CHLORIDE 112 mmol/L (98-107); COR CA(FOR HYPOALB) 9.4 mg/dL (8.5-10.1); CREATININE 3.05 mg/dL (0.55-1.02); SODIUM 142 mmol/L (136-145); TOTAL PROTEIN 6.5 g/dL (6.4-8.2); eGFR BLACK RACES 20 (>60); eGFR NON BLACK RACES 17 (>60)
[2017-05-09 09:24] VITALS: BP 166/80
== END 2017-05-09 09:15 | disposition left against medical advice (07) ==
LOC: ER 16:12 → MED/SURG 19:13 → UNDOADMOB 19:13 → INTOOBSV 19:13 → MED/SURG 19:13 → UNDODISOB 05-09 09:15
PROVIDERS: ADMIT Internal Medicine; ATTEND Obstetrics & Gynecology Obstetrics
DX: N30.01 Acute cystitis with hematuria (principal); E86.0 Dehydration; R79.89 Other specified abnormal findings of blood chemistry; B96.29 Other Escherichia coli [E. coli] as the cause of diseases classified elsewhere; D64.89 Other specified anemias; R94.4 Abnormal results of kidney function studies
CPT/HCPCS: 36415; 74022; 80053; 81001; 85025; 86140; 86677; 87086; 87088; 87186; 96365; 96367; 96374; 99282; 99284; A4216; A4222; Q0177; G0378; J0744; J1580; J2405

== ENCOUNTER 2017-05-12 12:20 | Emergency (ER) | payer MEDICAID ==
[2017-05-12 12:37] VITALS: BMI 16.9
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
[2017-05-12] MEDS ORDERED: TORADOL 30 MG VIAL IM ONE (13:18)
[2017-05-12] MEDS ORDERED: TORADOL 30 MG VIAL ONE (13:41)
[2017-05-12 15:38] VITALS: BP 152/65
[2017-05-12] MEDS ORDERED: TORADOL TAB PO ONE (15:48)
== END 2017-05-12 16:05 | disposition home or self-care (01) ==
LOC: ER 12:26
DX: R51 Headache (principal); M19.90 Unspecified osteoarthritis, unspecified site
CPT/HCPCS: 96372; 99282; J1885

== ENCOUNTER 2017-05-15 16:56 | Emergency (ER) | payer MEDICAID ==
[2017-05-15 17:05] VITALS: BP 147/79; BMI 16.9
[2017-05-15] MEDS ORDERED: BENADRYL INJ 50 MG VIAL IM ONE ×2 (17:08→17:11)
--- NOTE | 2017-05-15 17:08 | DR.GENAD ---
HPI - PCP Primary Care Physician: MIGUEL CAI - HPI Comment HPI Comment: HISTORY BELOW. - Complaint/Symptoms Chief Complaint Doctors Comments: PATIENT HAVE CHRONIC PRURITUS FLARE. IT IS WORSE TODAY. NO SOB OR THROAT DISCOMFORT. Chief Complaint:: PT C/O ITCHING EVERY SINCE HER KIDNEY STOPPED WORKING PT STATES " I NEED SOME BENADRYL" - Nurses notes reviewed Nurses Notes Review: Yes - Source History Provided: Patient - Mode of Arrival Mode of Arrival: Ambulatory - Timing Onset of Chief Complaint: 05/11/17 Came on: Suddenly - Duration Duration: Constant Duration: Days - Severity Severity: Moderate PMH - PMH Past Medical History: Yes Past Medical History: CVA, Hypertension Past Surgical History: Yes - Family History History of Family Medical Conditions: Yes Family Medical History: [place], Hypertension - Social History Does patient currently use any type of tobacco product: Yes Have you used tobacco products in the last 12 months: Yes Type of Tobacco Use: Cigarettes Does any household member use tobacco: No Alcohol Use: None Do you use any recreational Drugs:: No Lives With: Family Lives Where: Home - infectious screening In the last 2 months have you had wt loss of >10#?: NO Have you had fever, night sweats or hemotysis?: No Have you traveled outside the country in the last 6 months?: No Isolation: Standard ROS - Review of Systems Constitutional: No Symptoms Reported Eyes: No Symptoms Reported ENTM: No Symptoms Reported Respiratoy: No Symptoms Reported Cardiovascular: No Symptoms Reported Gastrointestinal/Abdominal: No Symptoms Reported Genitourinary: No Symptoms Reported Neurological: No Symptoms Reported Musculoskeletal: No Symptoms Reported Integumentary: Itching Hematologic/Lymphatic: No Symptoms Reported Endocrine: No Symptoms Reported All Other Systems: Reviewed and Negative PE - Vital Signs Vitals: Temperature 96.6 F Pulse Rate 73 Respiratory Rate 20 Blood Pressure [Right Arm] 152/65 Blood Pressure [Left Arm] 181/88 Blood Pressure 147/79 O2 Sat by Pulse Oximetry 98 - General Limitations: No Limitations General Appearance: Alert - Head Head Exam: Normal Inspection - Eyes Eye exam: Normal Appearance - ENT ENT Exam: Normal External Ear Exam External Ear Exam: Normal External Inspection TM/Canal Exam: Bilateral Normal Nose Exam: Normal Nose Exam Mouth Exam: Normal Inspection Throat Exam: Normal Inspection - Neck Neck Exam: Normal Inspection - Chest Chest Inspection: Symmetric Chest Wall Rise - Respiratory Respiratory Exam: Normal Lung Sounds Bilat Respiratory Exam: Bilateral Wheezing, Bilateral Rhonchi, Lower Wheezing, Lower Rhonchi - Cardiovascular Cardiovascular Exam: Regular Rate, Normal Rhythm, Normal Heart Sounds - Abdominal Exam Abdominal Exam: Normal Bowel Sounds, Soft. negative: Tenderness - Extremities Extremities Exam: Normal Inspection - Back Back Exam: Normal Inspection - Neurologic Neurological Exam: Alert, Oriented X3 - Psychiatric Psychiatric Exam: Anxious - Skin Skin Exam: Erythema MDM - Differential Diagnosis Differential Diagnosis: CHRONIC PRURITUS, ACUTE EXACERBATION. Course - Treatment Treatment: SEE ORDERS. - Education/Counseling Education/Counseling: Patient Educated On: Treatment, Diagnosis - Diagnosis Discharge Problem: Pruritus - Discharge Plan Disposition: 01 HOME, SELF-CARE Condition: Stable Prescriptions: Hydroxyzine Pamoate [Vistaril] 25 mg PO TID PRN #15 cap PRN Reason: - Follow ups/Referrals Follow ups/Referrals: LIEN RIVERA [Primary Care Provider] - 3 days - Instructions Instructions: Pruritus Additional Instructions: RETURN TO ED IF WORSE.
[2017-05-15] MEDS ORDERED: BENADRYL INJ 50 MG VIAL ONE (17:21)
== END 2017-05-15 17:53 | disposition home or self-care (01) ==
LOC: ER 16:59
DX: L29.8 Other pruritus (principal)
CPT/HCPCS: 96372; 99282; J1200

== ENCOUNTER 2017-05-16 18:37 | Emergency (ER) | payer MEDICAID ==
[2017-05-16] MEDS ORDERED: SOLU-Medrol 125 MG VIAL IVP ONE (19:57)
[2017-05-16] MEDS ORDERED: PEPCID 20 MG IV PREMIX* 20 MG/50 ML BAG IV ONE ×2 (20:00→20:02)
[2017-05-16] MEDS ORDERED: BENADRYL INJ 50 MG VIAL IVP STA (20:01)
[2017-05-16] MEDS ORDERED: SOLU-Medrol 125 MG VIAL ONE (20:03)
--- NOTE | 2017-05-16 20:11 | DR.ALLERGY ---
HPI - Time Seen Time seen: 20:06 - Complaint/Symptoms Chief Complaint Doctors Comments: Patient is complaining of a rash with itching and swelling in the forehead and face off and on for the past six months that got worst today. Patient in the emergency room yesterday with the same problems and was given benadryl and given a prescription for atarax that she did not get filled. States she is just itching. she denies chest pain, SOB, cold, cough, wheezing or edema. States she is a patient of Dr. Gonzalez and she has had this rash for the past six month since she found out she only has one kidney. States she has not had any new foods or medicines recently. Patient states she stopped going to her kidney doctor because she was going to have her labs done by her local doctor. Chief Complaint:: c/o itching and swelling to forehead-has urticaria to forehead -denies sob/diff breathing or swallowing - Source History Provided: Patient, EMS - Mode of Arrival Mode of Arrival: EMS - Timing Onset of Chief Complaint: 05/15/17 Came on: Gradually - Context Exposed to: Unknown Developed: Rash, Pruritis History of: Urticaria, Prior similar episodes - Location Location: Face, Eyes - Severity SOB: None Swallowing: None Rash: Moderate Pruritis: Moderate - Modifying factors Improves: Nothing - Associated signs and symptoms Associated signs and symptoms: None PMH - PMH Past Medical History: Yes Past Medical History: CVA, Hypertension Past Surgical History: No - Family History History of Family Medical Conditions: No Family Medical History: [place], Hypertension - Social History Do you use any recreational Drugs:: No - infectious screening In the last 2 months have you had wt loss of >10#?: NO Have you had fever, night sweats or hemotysis?: No Have you traveled outside the country in the last 6 months?: No Isolation: Standard ROS - Review of Systems Constitutional: No Symptoms Reported. negative: See HPI, Chills, Diaphoresis, Fever, Malaise, Weakness, Irritable, Fatigue, Loss of Appetite, Other Eyes: No Symptoms Reported. negative: See HPI, Eye Pain, Blurred Vision, Tearing, Discharge, Photophobia, Diplopia, Other ENTM: No Symptoms Reported Respiratoy: No Symptoms Reported Cardiovascular: No Symptoms Reported Gastrointestinal/Abdominal: No Symptoms Reported, Nausea Genitourinary: No Symptoms Reported Neurological: No Symptoms Reported Musculoskeletal: No Symptoms Reported Integumentary: No Symptoms Reported, Rash (hives on forehead; left lower eyelid ; face), Itching Hematologic/Lymphatic: No Symptoms Reported Endocrine: No Symptoms Reported. negative: See HPI, Excessive Sweating, Flushing, Intolerance to Cold, Intolerance to Heat, Increased Hunger, Increased Thirst, Increased Urine, Unexplained Weight Gain, Unexplained Weight Loss, Failure to Thrive, Decreased Appetite, Other Psychiatric: No Symptoms Reported PE - Vitals Vital Signs: Temp Pulse Pulse Resp BP BP BP 05/16/17 20:20 76 18 148/80 05/16/17 19:30 73 152/82 05/16/17 18:38 97.2 F L 78 18 132/99 05/15/17 16:57 147/79 05/12/17 15:37 152/65 05/12/17 13:56 181/88 Pulse Ox 05/16/17 20:20 100 05/16/17 19:30 100 05/16/17 18:38 100 05/15/17 16:57 05/12/17 15:37 05/12/17 13:56 - Constitutional Limitations: No Limitations General Appearance: Alert, In Distress (moderate) - Head Head Exam: Normal Inspection, Atraumatic, Normocephalic (multiple wheals forehead, left eyelid and face) - Eyes Eye exam: Normal Appearance, PERRL, EOMI, Periorbital Swelling. negative: Scleral Icterus, Conjunctival Injection, Nystagmus, Miosis, Mydrasis, Periorbital Tenderness, Other - ENT ENT Exam: Normal Exam, Normal Oropharynx, Normal External Ear Exam, Mucous Membranes Moist Mouth Exam: Normal Inspection. negative: Drooling, Trismus, Lip Swelling, Tongue Elevation, Tongue Swelling, Laceration, Other Throat Exam: Normal Inspection - Neck Neck Exam: Normal Inspection, Full ROM, Trachea Midline - Chest Chest Inspection: Normal Inspection, Symmetric Chest Wall Rise - Respiratory Respiratory Exam: Normal Lung Sounds Bilat Respiratory Exam: Bilateral Clear to Auscultation - Cardiovascular Cardiovascular Exam: Regular Rate, Normal Rhythm, Normal Heart Sounds - Abdominal Exam Abdominal Exam: Normal Inspection, Normal Bowel Sounds, Soft. negative: Distention, Tenderness, Guarding, Rebound, Rigidity, Dimnished Bowel Sounds, Hyperactive Bowel Sounds, Hypoactive Bowel Sounds, Organomegaly, Trauma, Incision, Ascites, Mass, Bruit, Pulsatile Mass, Hernia, Other Abdominal Tenderness: negative: RUQ, RLQ, LUQ, LLQ, Epigastrium, Suprapubic, Diffuse, Mild, Moderate, Severe, Other - Extremities Extremities Exam: Normal Inspection, Full ROM, Normal Capillary Refill. negative: Tenderness, Edema, Joint Swelling, Calf Tenderness, Other - Back Back Exam: Normal Inspection, Full ROM - Neurologic Neurological Exam: Alert, Oriented X3, CN II-XII Intact, Reflexes Normal. negative: Normal Gait (gait not tested) - Psychiatric Psychiatric Exam: Normal Affect, Normal Mood - Skin Skin Exam: Warm, Dry, Intact, Normal Color, Rash Type of Lesion: Rash Distribution: Generalized, Face Description: Swelling, Urticarial ROR - Labs Reviewed Result Diagrams: 05/16/17 20:05 05/16/17 20:05 Laboratory: WBC 15.7 X10^3/uL (3.6-10.0) H 05/16/17 20:05 RBC 3.53 X10^6/uL (3.5-5.4) 05/16/17 20:05 Hgb 11.9 g/dL (12.0-16.0) L 05/16/17 20:05 Hct 36.0 % (36.0-47.0) 05/16/17 20:05 MCV 102.0 fL (80.0-100.0) H 05/16/17 20:05 MCH 33.7 pg (27.0-34.0) 05/16/17 20:05 MCHC 33.1 g/dL (33.0-35.0) 05/16/17 20:05 RDW 15.4 % (11.6-16.5) 05/16/17 20:05 Plt Count 406 X10^3/uL (150.0-450.0) 05/16/17 20:05 MPV 8.4 fL (7.4-11.0) 05/16/17 20:05 Neut % 62.3 % (42.0-75.0) 05/16/17 20:05 Lymph % 25.2 % (21.0-51.0) 05/16/17 20:05 [place] % 9.0 % (0.0-13.0) 05/16/17 20:05 Eos % 2.6 % (0.9-2.9) 05/16/17 20:05 Baso % 0.9 % (0.2-1.0) 05/16/17 20:05 Neut # 9.8 x10^3/uL (2.2-4.8) H 05/16/17 20:05 Lymph # 4.0 X10^3/uL (1.3-2.9) H 05/16/17 20:05 [place] # 1.4 x10^3/uL (0.3-0.8) H 05/16/17 20:05 Eos # 0.4 x10^3/uL (0.0-0.2) H 05/16/17 20:05 Baso # 0.1 X10^3/uL (0.0-0.1) 05/16/17 20:05 Absolute Nucleated RBC 0.0 /100WBC 05/16/17 20:05 Sodium 138 mmol/L (136-145) 05/16/17 20:05 Corrected Sodium TNP 05/16/17 20:05 Potassium 4.3 mmol/L (3.5-5.1) 05/16/17 20:05 Chloride 106 mmol/L (98-107) 05/16/17 20:05 Carbon Dioxide 16.3 mmol/L (21-32) L 05/16/17 20:05 BUN 55 mg/dL (7-18) H 05/16/17 20:05 Creatinine 4.20 mg/dL (0.55-1.02) H 05/16/17 20:05 Est GFR (MDRD) Af Amer 14 (>60) L 05/16/17 20:05 Est GFR (MDRD) Non-Af 11 (>60) L 05/16/17 20:05 Glucose 79 mg/dL (65-99) 05/16/17 20:05 Calcium 10.1 mg/dL (8.5-10.1) 05/16/17 20:05 Corrected Calcium TNP 05/16/17 20:05 Total Bilirubin 0.10 mg/dL (0.2-1.0) L 05/16/17 20:05 AST 54 Units/L (15-37) H 05/16/17 20:05 ALT 77 Units/L (12-78) 05/16/17 20:05 Alkaline Phosphatase 79 Units/L (46-116) 05/16/17 20:05 Total Protein 7.0 g/dL (6.4-8.2) 05/16/17 20:05 Albumin 3.5 g/dL (3.4-5.0) 05/16/17 20:05 Globulin 3.5 g/dL (2.5-4.5) 05/16/17 20:05 Albumin/Globulin Ratio 1.0 Ratio (1.1-2.1) L 05/16/17 20:05 - Diagnosis Discharge Problem: Urticaria, Chronic renal failure, stage 4 (severe), Allergic urticaria, Renal disease - Discharge Plan Disposition: 01 HOME, SELF-CARE Condition: Stable Prescriptions: Diphenhydramine HCl [BENADRYL 50 MG CAP *] 50 mg PO Q8H #30 cap Loratadine [Claritin] 10 mg PO DAILY #15 tab Ranitidine HCl [ZANTAC TAB 150 MG *] 150 mg PO BID #20 tab - Follow ups/Referrals Follow ups/Referrals: DEXTER,None [Primary Care Provider] - 3 days TYLER MA [STAFF PHYSICIAN] - 3 days - Instructions Instructions: Hives, [id number], Pruritus, Chronic Kidney Disease, Easy-to- Read
[2017-05-16 20:17] LABS: BASOPHILS # (AUTO) 0.1 X10^3/uL (0.0-0.1); BASOPHILS % (AUTO) 0.9 % (0.2-1.0); EOSINOPHILS # (AUTO) 0.4 x10^3/uL (0.0-0.2); EOSINOPHILS % (AUTO) 2.6 % (0.9-2.9); HEMOGLOBIN 11.9 g/dL (12.0-16.0); LYMPHOCYTES % (AUTO) 25.2 % (21.0-51.0); MEAN CORPUSCULAR HEMOGLOBIN 33.7 pg (27.0-34.0); MEAN CORPUSCULAR HGB CONC 33.1 g/dL (33.0-35.0); MEAN PLATELET VOLUME 8.4 fL (7.4-11.0); MONOCYTES # (AUTO) 1.4 x10^3/uL (0.3-0.8); NEUTROPHILS # (AUTO) 9.8 x10^3/uL (2.2-4.8); NEUTROPHILS % (AUTO) 62.3 % (42.0-75.0); PLATELET COUNT 406 X10^3/uL (150.0-450.0); RED BLOOD COUNT 3.53 X10^6/uL (3.5-5.4); RED CELL DISTRIBUTION WIDTH 15.4 % (11.6-16.5); WHITE BLOOD COUNT 15.7 X10^3/uL (3.6-10.0)
[2017-05-16] MEDS ORDERED: BENADRYL INJ 50 MG VIAL ONE (20:18)
[2017-05-16 20:32] LABS: ALANINE AMINOTRANSFERASE 77 Units/L (12-78); ALBUMIN 3.5 g/dL (3.4-5.0); ALKALINE PHOSPHATASE 79 Units/L (46-116); ASPARTATE AMINO TRANSFERASE 54 Units/L (15-37); BLOOD UREA NITROGEN 55 mg/dL (7-18); CALCIUM 10.1 mg/dL (8.5-10.1); CARBON DIOXIDE 16.3 mmol/L (21-32); CHLORIDE 106 mmol/L (98-107); SODIUM 138 mmol/L (136-145); eGFR BLACK RACES 14 (>60); eGFR NON BLACK RACES 11 (>60)
--- NOTE | 2017-05-16 20:45 | RAD ---
HISTORY: Itching and swelling, urticaria Study: Single-view chest Comparison: 07/08/2016 Findings: The trachea is midline. The cardiac silhouette is unremarkable. The lungs appear clear however the left costophrenic not included in the field of view and cannot be evaluated.. The bony thorax is unr emarkable. IMPRESSION: 1. No acute cardiopulmonary disease. Reported By:
[2017-05-16] MEDS ORDERED: NS 500 ML IV 500 ML IV ONE ×2 (21:20→21:22)
[2017-05-16 23:03] VITALS: BP 140/71
== END 2017-05-17 03:16 | disposition home or self-care (01) ==
LOC: ER 18:39
DX: L50.9 Urticaria, unspecified (principal); N18.4 Chronic kidney disease, stage 4 (severe); L50.0 Allergic urticaria; N28.9 Disorder of kidney and ureter, unspecified
CPT/HCPCS: 36415; 71045; 80053; 85025; 96365; 96367; 96374; 96375; 99282; 99283; A4222; S0028; J1200; J2930

== ENCOUNTER 2017-05-21 13:04 | Emergency (ER) | payer MEDICAID ==
[2017-05-21 13:25] VITALS: BP 149/95; BMI 16.0
[2017-05-21 14:30] LABS: ALANINE AMINOTRANSFERASE 28 Units/L (12-78); ALBUMIN 3.8 g/dL (3.4-5.0); ALKALINE PHOSPHATASE 99 Units/L (46-116); ASPARTATE AMINO TRANSFERASE 12 Units/L (15-37); BLOOD UREA NITROGEN 48 mg/dL (7-18); CALCIUM 10.2 mg/dL (8.5-10.1); CHLORIDE 103 mmol/L (98-107); COR NA(FOR HYPERGLY) 140 mmol/L (136-145); CREATININE 4.69 mg/dL (0.55-1.02); SODIUM 139 mmol/L (136-145); TOTAL PROTEIN 7.7 g/dL (6.4-8.2); eGFR BLACK RACES 12 (>60); eGFR NON BLACK RACES 10 (>60)
[2017-05-21 14:41] LABS: BASOPHILS # (AUTO) 0.1 X10^3/uL (0.0-0.1); BASOPHILS % (AUTO) 0.9 % (0.2-1.0); EOSINOPHILS # (AUTO) 0.4 x10^3/uL (0.0-0.2); EOSINOPHILS % (AUTO) 2.3 % (0.9-2.9); HEMATOCRIT 42.6 % (36.0-47.0); HEMOGLOBIN 14.2 g/dL (12.0-16.0); LYMPHOCYTES # (AUTO) 4.4 X10^3/uL (1.3-2.9); MEAN CORPUSCULAR HEMOGLOBIN 34.1 pg (27.0-34.0); MEAN CORPUSCULAR HGB CONC 33.4 g/dL (33.0-35.0); MEAN CORPUSCULAR VOLUME 102.1 fL (80.0-100.0); MEAN PLATELET VOLUME 9.1 fL (7.4-11.0); MONOCYTES # (AUTO) 1.2 x10^3/uL (0.3-0.8); MONOCYTES % (AUTO) 7.4 % (0.0-13.0); NEUTROPHILS # (AUTO) 10.2 x10^3/uL (2.2-4.8); NEUTROPHILS % (AUTO) 62.4 % (42.0-75.0); PLATELET COUNT 406 X10^3/uL (150.0-450.0); RED BLOOD COUNT 4.18 X10^6/uL (3.5-5.4); RED CELL DISTRIBUTION WIDTH 15.5 % (11.6-16.5); WHITE BLOOD COUNT 16.3 X10^3/uL (3.6-10.0)
[2017-05-21] MEDS ORDERED: NS 1000 ML 1,000 ML IV ONE (15:01)
[2017-05-21] MEDS ORDERED: NS 1000 ML 1,000 ML ONE (15:04)
--- NOTE | 2017-05-21 17:29 | DR.GENAD ---
HPI - PCP Primary Care Physician: rivera - Complaint/Symptoms Chief Complaint Doctors Comments: History as stated. Patient presents with complaint of not having a place to stay. 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 She contacted family members but have not been able to get placement.She is alert in no acute distress Chief Complaint:: patient stated she has been itching for years, she takes benadryl but today she stated it is real bad - Source History Provided: Patient - Mode of Arrival Mode of Arrival: EMS - Timing Onset of Chief Complaint: 05/19/17 PMH - PMH Past Medical History: Yes Past Medical History: CVA, Hypertension Past Surgical History: No - Family History History of Family Medical Conditions: Yes Family Medical History: [place], Hypertension - Social History Does patient currently use any type of tobacco product: Yes Have you used tobacco products in the last 12 months: Yes Type of Tobacco Use: Cigarettes How many years tobacco product used: 40 Does any household member use tobacco: Yes Alcohol Use: None Do you use any recreational Drugs:: No Lives With: Family Lives Where: Home - infectious screening In the last 2 months have you had wt loss of >10#?: NO Have you had fever, night sweats or hemotysis?: No Have you traveled outside the country in the last 6 months?: No Isolation: Standard ROS - Review of Systems Constitutional: No Symptoms Reported Eyes: No Symptoms Reported ENTM: No Symptoms Reported Respiratoy: No Symptoms Reported Cardiovascular: No Symptoms Reported Gastrointestinal/Abdominal: No Symptoms Reported Genitourinary: No Symptoms Reported Neurological: No Symptoms Reported Musculoskeletal: No Symptoms Reported Integumentary: No Symptoms Reported Hematologic/Lymphatic: No Symptoms Reported Endocrine: No Symptoms Reported Psychiatric: No Symptoms Reported All Other Systems: Reviewed and Negative PE - Vital Signs Vitals: Temperature 98.6 F Pulse Rate 90 Respiratory Rate 16 Blood Pressure [Right Arm] 140/71 Blood Pressure [Left Arm] 181/88 Blood Pressure 149/95 O2 Sat by Pulse Oximetry 99 - General General Appearance: Alert, In No Apparent Distress - Head Head Exam: Normal Inspection, Atraumatic - Eyes Eye exam: Normal Appearance, PERRL, EOMI - ENT ENT Exam: Normal Exam External Ear Exam: Normal External Inspection TM/Canal Exam: Bilateral Normal Nose Exam: Normal Nose Exam Mouth Exam: Normal Inspection Throat Exam: Normal Inspection - Neck Neck Exam: Normal Inspection, Full ROM - Chest Chest Inspection: Normal Inspection - Respiratory Respiratory Exam: Normal Lung Sounds Bilat Respiratory Exam: Bilateral Clear to Auscultation - Cardiovascular Cardiovascular Exam: Regular Rate, Normal Rhythm - Abdominal Exam Abdominal Exam: Normal Inspection, Normal Bowel Sounds Abdominal Tenderness: negative: RUQ, RLQ, LUQ, LLQ, Epigastrium, Suprapubic, Diffuse, Mild, Moderate, Severe, Other - Extremities Extremities Exam: Normal Inspection - Back Back Exam: Normal Inspection, Full ROM - Neurologic Neurological Exam: Alert, Oriented X3, CN II-XII Intact - Psychiatric Psychiatric Exam: Normal Affect - Skin Skin Exam: Warm, Dry Course - Reevaluation 2nd: Improved - Education/Counseling Education/Counseling: Family, Counseling Educated On: Treatment, Diagnosis, Needs for Follow Up ROR - Labs Reviewed Result Diagrams: 05/21/17 13:20 05/21/17 13:20 Laboratory: WBC 16.3 X10^3/uL (3.6-10.0) H 05/21/17 13:20 RBC 4.18 X10^6/uL (3.5-5.4) 05/21/17 13:20 Hgb 14.2 g/dL (12.0-16.0) 05/21/17 13:20 Hct 42.6 % (36.0-47.0) 05/21/17 13:20 MCV 102.1 fL (80.0-100.0) H 05/21/17 13:20 MCH 34.1 pg (27.0-34.0) H 05/21/17 13:20 MCHC 33.4 g/dL (33.0-35.0) 05/21/17 13:20 RDW 15.5 % (11.6-16.5) 05/21/17 13:20 Plt Count 406 X10^3/uL (150.0-450.0) 05/21/17 13:20 MPV 9.1 fL (7.4-11.0) 05/21/17 13:20 Neut % 62.4 % (42.0-75.0) 05/21/17 13:20 Lymph % 27.0 % (21.0-51.0) 05/21/17 13:20 [place] % 7.4 % (0.0-13.0) 05/21/17 13:20 Eos % 2.3 % (0.9-2.9) 05/21/17 13:20 Baso % 0.9 % (0.2-1.0) 05/21/17 13:20 Neut # 10.2 x10^3/uL (2.2-4.8) H 05/21/17 13:20 Lymph # 4.4 X10^3/uL (1.3-2.9) H 05/21/17 13:20 [place] # 1.2 x10^3/uL (0.3-0.8) H 05/21/17 13:20 Eos # 0.4 x10^3/uL (0.0-0.2) H 05/21/17 13:20 Baso # 0.1 X10^3/uL (0.0-0.1) 05/21/17 13:20 Absolute Nucleated RBC 0.1 /100WBC 05/21/17 13:20 Sodium 139 mmol/L (136-145) 05/21/17 13:20 Corrected Sodium 140 mmol/L (136-145) 05/21/17 13:20 Potassium 4.2 mmol/L (3.5-5.1) 05/21/17 13:20 Chloride 103 mmol/L (98-107) 05/21/17 13:20 Carbon Dioxide 17.0 mmol/L (21-32) L 05/21/17 13:20 BUN 48 mg/dL (7-18) H 05/21/17 13:20 Creatinine 4.69 mg/dL (0.55-1.02) H 05/21/17 13:20 Est GFR (MDRD) Af Amer 12 (>60) L 05/21/17 13:20 Est GFR (MDRD) Non-Af 10 (>60) L 05/21/17 13:20 Glucose 125 mg/dL (65-99) H 05/21/17 13:20 Calcium 10.2 mg/dL (8.5-10.1) H 05/21/17 13:20 Corrected Calcium TNP 05/21/17 13:20 Total Bilirubin 0.20 mg/dL (0.2-1.0) 05/21/17 13:20 AST 12 Units/L (15-37) L 05/21/17 13:20 ALT 28 Units/L (12-78) 05/21/17 13:20 Alkaline Phosphatase 99 Units/L (46-116) 05/21/17 13:20 Total Protein 7.7 g/dL (6.4-8.2) 05/21/17 13:20 Albumin 3.8 g/dL (3.4-5.0) 05/21/17 13:20 Globulin 3.9 g/dL (2.5-4.5) 05/21/17 13:20 Albumin/Globulin Ratio 1.0 Ratio (1.1-2.1) L 05/21/17 13:20 - Diagnosis Discharge Problem: Prerenal azotemia - Discharge Plan Condition: Stable - Follow ups/Referrals Follow ups/Referrals: LIEN RIVERA [Primary Care Provider] - 3 days - Instructions
== END 2017-05-21 17:35 | disposition home or self-care (01) ==
LOC: ER 13:11
DX: R79.89 Other specified abnormal findings of blood chemistry (principal)
CPT/HCPCS: 36415; 80053; 85025; 96365; 99282; 99283; A4222

== ENCOUNTER 2017-05-27 10:35 | Inpatient (IN) | payer MEDICAID ==
[2017-05-27 10:43] VITALS: BMI 15.4
--- NOTE | 2017-05-27 10:57 | DR.GENAD ---
HPI - PCP Primary Care Physician: MIGUEL CAI - HPI Comment HPI Comment: HER SISTERS DORETHA SHE IS CONFUSE AND HALLUCINATING AT HOME. - Complaint/Symptoms Chief Complaint Doctors Comments: HISTORY BELOW. SHE IS COMPLAINING OF WEAKNESS. Chief Complaint:: PT HAD A APPT WITH MIGUEL CAI AT 1020 THIS AM PT HAD NOT HAD A BATH IN 3 WEEKS, AND PT HAS FECES TO HER FEET THAT SHE SAYS IS CHOCOLATE... PT LIVES IN A [place] AND SHE IS NO LONGER ABLE TO CARE FOR HERSELF.. Self Treatment fo Chief Complaint: MIGUEL CAI CALLED REGARDING DIRECT ADMIT AND HE STATES " PT NEEDS TO BE EVALUATED PER MD AND MAYBE [facility] PLACEMENT". - Nurses notes reviewed Nurses Notes Review: Yes - Source History Provided: Patient - Mode of Arrival Mode of Arrival: Wheelchair - Timing Onset of Chief Complaint: 05/03/17 Came on: Gradually - Duration Duration: Constant Duration: Days - Severity Severity: Moderate PMH - PMH Past Medical History: Yes Past Medical History: CVA, Hypertension Past Surgical History: Yes - Family History History of Family Medical Conditions: Yes Family Medical History: OR, Hypertension - Social History Does patient currently use any type of tobacco product: Yes Have you used tobacco products in the last 12 months: Yes Type of Tobacco Use: Cigarettes How many years tobacco product used: 30 Does any household member use tobacco: No Alcohol Use: None Do you use any recreational Drugs:: No Lives With: Family Lives Where: Home - infectious screening In the last 2 months have you had wt loss of >10#?: NO Have you had fever, night sweats or hemotysis?: No Have you traveled outside the country in the last 6 months?: No Isolation: Standard ROS - Review of Systems Constitutional: Weakness, Fatigue. negative: Chills, Fever Eyes: negative: Eye Pain, Discharge ENTM: negative: Ear Pain, Nose Discharge, Nose Congestion, Throat Pain Respiratoy: Short of Breath. negative: Productive Cough, Non-Productive Cough, Wheezing, Hemoptysis Cardiovascular: Other (HTN). negative: Chest Pain, Edema Gastrointestinal/Abdominal: negative: Abdominal Pain, Diarrhea, Nausea, Vomiting Genitourinary: negative: Dysuria, Frequency, Hematuria Neurological: Headache, Weakness, Dizziness Musculoskeletal: Back Pain, Back Integumentary: Change in Color Hematologic/Lymphatic: Anemia Endocrine: No Symptoms Reported Psychiatric: Hallucinations All Other Systems: Reviewed and Negative PE - Vital Signs Vitals: Temperature 99.1 F Pulse Rate 119 Respiratory Rate 20 Blood Pressure [Right Arm] 140/71 Blood Pressure [Left Arm] 181/88 Blood Pressure 141/101 O2 Sat by Pulse Oximetry 99 - General Limitations: Altered Mental Status General Appearance: Alert - Head Head Exam: Normal Inspection - Eyes Eye exam: Normal Appearance, PERRL, EOMI. negative: Scleral Icterus, Conjunctival Injection - ENT ENT Exam: Normal External Ear Exam External Ear Exam: Normal External Inspection TM/Canal Exam: Bilateral Normal Nose Exam: Normal Nose Exam Mouth Exam: Normal Inspection Throat Exam: Normal Inspection - Neck Neck Exam: Trachea Midline. negative: Tenderness, Meningismus, Lymphadenopathy - Chest Chest Inspection: Symmetric Chest Wall Rise - Respiratory Respiratory Exam: Respiratory Distress Respiratory Exam: Bilateral Rhonchi, Lower Rhonchi - Cardiovascular Cardiovascular Exam: Regular Rate, Normal Rhythm, Normal Heart Sounds - Abdominal Exam Abdominal Exam: Normal Bowel Sounds, Soft. negative: Tenderness - Extremities Extremities Exam: Normal Inspection - Back Back Exam: Paraspinal Tenderness (LOWER BACK) - Neurologic Neurological Exam: Alert, Oriented X3 - Psychiatric Psychiatric Exam: Anxious - Skin Skin Exam: Normal Color MDM - Additional Information Additional Information Obtained From: Family - Differential Diagnosis Differential Diagnosis: CONFUSION, DEHYDRATION, UTI, OR, PNEUMONIA Course - Treatment Treatment: SEE ORDERS. - Consultation Consultation Comments: DISCUSS PATIENT WITH DR. RIVERA. HE WILL ADMIT PATIENT. - Education/Counseling Education/Counseling: Patient, Family, Education Educated On: Diagnosis ROR - Labs Reviewed Laboratory Results Reviewed?: Yes Result Diagrams: 05/28/17 04:20 05/28/17 04:20 Laboratory: WBC 16.2 X10^3/uL (3.6-10.0) H 05/27/17 11:00 RBC 4.04 X10^6/uL (3.5-5.4) 05/27/17 11:00 Hgb 13.6 g/dL (12.0-16.0) 05/27/17 11:00 Hct 40.2 % (36.0-47.0) 05/27/17 11:00 MCV 99.5 fL (80.0-100.0) 05/27/17 11:00 MCH 33.7 pg (27.0-34.0) 05/27/17 11:00 MCHC 33.8 g/dL (33.0-35.0) 05/27/17 11:00 RDW 14.2 % (11.6-16.5) 05/27/17 11:00 Plt Count 385 X10^3/uL (150.0-450.0) 05/27/17 11:00 MPV 8.9 fL (7.4-11.0) 05/27/17 11:00 Neut % 71.4 % (42.0-75.0) 05/27/17 11:00 Lymph % 20.9 % (21.0-51.0) L 05/27/17 11:00 [place] % 6.4 % (0.0-13.0) 05/27/17 11:00 Eos % 0.5 % (0.9-2.9) L 05/27/17 11:00 Baso % 0.8 % (0.2-1.0) 05/27/17 11:00 Neut # 11.6 x10^3/uL (2.2-4.8) H 05/27/17 11:00 Lymph # 3.4 X10^3/uL (1.3-2.9) H 05/27/17 11:00 [place] # 1.0 x10^3/uL (0.3-0.8) H 05/27/17 11:00 Eos # 0.1 x10^3/uL (0.0-0.2) 05/27/17 11:00 Baso # 0.1 X10^3/uL (0.0-0.1) 05/27/17 11:00 Absolute Nucleated RBC 0.1 /100WBC 05/27/17 11:00 INR Target Range - 05/27/17 11:00 INR 0.93 (0.8-1.3) 05/27/17 11:00 PTT 28.7 SECONDS (22.9-36.5) 05/27/17 11:00 PTT Comment - 05/27/17 11:00 Sodium 136 mmol/L (136-145) 05/27/17 11:00 Corrected Sodium 137 mmol/L (136-145) 05/27/17 11:00 Potassium 3.3 mmol/L (3.5-5.1) L 05/27/17 11:00 Chloride 99 mmol/L (98-107) 05/27/17 11:00 Carbon Dioxide 25.2 mmol/L (21-32) 05/27/17 11:00 BUN 46 mg/dL (7-18) H 05/27/17 11:00 Creatinine 3.26 mg/dL (0.55-1.02) H 05/27/17 11:00 Est GFR (MDRD) Af Amer 19 (>60) L 05/27/17 11:00 Est GFR (MDRD) Non-Af 15 (>60) L 05/27/17 11:00 Glucose 135 mg/dL (65-99) H 05/27/17 11:00 Lactic Acid 1.4 mmol/L (0.4-2.0) 05/27/17 11:00 Calcium 15.0 mg/dL (8.5-10.1) H* 05/27/17 11:00 Corrected Calcium TNP 05/27/17 11:00 Total Bilirubin 0.20 mg/dL (0.2-1.0) 05/27/17 11:00 AST 18 Units/L (15-37) 05/27/17 11:00 ALT 20 Units/L (12-78) 05/27/17 11:00 Alkaline Phosphatase 80 Units/L (46-116) 05/27/17 11:00 Creatine Kinase 34 Units/L (26-192) 05/27/17 11:00 CK-MB (CK-2) 2.1 ng/mL (0-4.0) 05/27/17 11:00 CK/CKMB % Calc 6.2 % (<4) 05/27/17 11:00 Troponin I < 0.02 ng/mL (0-1.5) 05/27/17 11:00 Total Protein 8.3 g/dL (6.4-8.2) H 05/27/17 11:00 Albumin 3.7 g/dL (3.4-5.0) 05/27/17 11:00 Globulin 4.6 g/dL (2.5-4.5) H 05/27/17 11:00 Albumin/Globulin Ratio 0.8 Ratio (1.1-2.1) L 05/27/17 11:00 Specimen Type Clean catch urine 05/27/17 12:24 Urine Color Yellow (YELLOW) 05/27/17 12:24 Urine Appearance Hazy (CLEAR) 05/27/17 12:24 Urine pH 6.0 (5.0 - 8.0) 05/27/17 12:24 Ur Specific [place] 1.020 (1.000-1.030) 05/27/17 12:24 Urine Protein 4+ (NEGATIVE) 05/27/17 12:24 Urine Glucose (UA) Negative (NEGATIVE) 05/27/17 12:24 Urine Ketones Negative (NEGATIVE) 05/27/17 12:24 Urine Occult Blood 2+ (NEGATIVE) 05/27/17 12:24 Urine Nitrite Positive (NEGATIVE) 05/27/17 12:24 Urine Bilirubin Negative (NEGATIVE) 05/27/17 12:24 Urine Urobilinogen Normal (NORMAL) 05/27/17 12:24 Ur Leukocyte Esterase 2+ (NEGATIVE) 05/27/17 12:24 Urine RBC 0-5 /HPF (NEGATIVE) 05/27/17 12:24 Urine WBC 20-25 /HPF (NEGATIVE) 05/27/17 12:24 Ur Squamous Epith Cells Negative /HPF (NEGATIVE) 05/27/17 12:24 Urine Bacteria 4+ /HPF (NEGATIVE) 05/27/17 12:24 Ur Culture Indicated? Yes/culture set up 05/27/17 12:24 - XRAY XRAY Interpreted by: Radiologist XRAY Findings: REPORT DISCUSS WITH PATIENT AND FAMILY. - EKG Rhythm: NSR ST: Ischemia (EKG NOTED) - Diagnosis Discharge Problem: Hypercalcemia, Renal insufficiency, Cardiac ischemia UTI (urinary tract infection) Qualifiers: Urinary tract infection type: site unspecified Hematuria presence: without hematuria Qualified Code(s): N39.0 - Urinary tract infection, site not specified - Discharge Plan Disposition: 09 ADMITTED INPATIENT Condition: Stable - Follow ups/Referrals - Instructions
[2017-05-27 11:14] LABS: BASOPHILS # (AUTO) 0.1 X10^3/uL (0.0-0.1); BASOPHILS % (AUTO) 0.8 % (0.2-1.0); EOSINOPHILS # (AUTO) 0.1 x10^3/uL (0.0-0.2); EOSINOPHILS % (AUTO) 0.5 % (0.9-2.9); HEMATOCRIT 40.2 % (36.0-47.0); HEMOGLOBIN 13.6 g/dL (12.0-16.0); LYMPHOCYTES # (AUTO) 3.4 X10^3/uL (1.3-2.9); LYMPHOCYTES % (AUTO) 20.9 % (21.0-51.0); MEAN CORPUSCULAR HEMOGLOBIN 33.7 pg (27.0-34.0); MEAN CORPUSCULAR HGB CONC 33.8 g/dL (33.0-35.0); MEAN CORPUSCULAR VOLUME 99.5 fL (80.0-100.0); MEAN PLATELET VOLUME 8.9 fL (7.4-11.0); MONOCYTES % (AUTO) 6.4 % (0.0-13.0); NEUTROPHILS # (AUTO) 11.6 x10^3/uL (2.2-4.8); NEUTROPHILS % (AUTO) 71.4 % (42.0-75.0); PLATELET COUNT 385 X10^3/uL (150.0-450.0); RED BLOOD COUNT 4.04 X10^6/uL (3.5-5.4); RED CELL DISTRIBUTION WIDTH 14.2 % (11.6-16.5); WHITE BLOOD COUNT 16.2 X10^3/uL (3.6-10.0)
[2017-05-27 11:31] LABS: LACTIC ACID 1.4 mmol/L (0.4-2.0)
[2017-05-27 11:38] LABS: ALANINE AMINOTRANSFERASE 20 Units/L (12-78); ALBUMIN 3.7 g/dL (3.4-5.0); ALKALINE PHOSPHATASE 80 Units/L (46-116); ASPARTATE AMINO TRANSFERASE 18 Units/L (15-37); BLOOD UREA NITROGEN 46 mg/dL (7-18); CARBON DIOXIDE 25.2 mmol/L (21-32); CHLORIDE 99 mmol/L (98-107); CKMB % 6.2 % (<4); COR NA(FOR HYPERGLY) 137 mmol/L (136-145); CREATINE KINASE 34 Units/L (26-192); CREATINE KINASE MB 2.1 ng/mL (0-4.0); CREATININE 3.26 mg/dL (0.55-1.02); SODIUM 136 mmol/L (136-145); TOTAL PROTEIN 8.3 g/dL (6.4-8.2); TROPONIN I < 0.02 ng/mL (0-1.5); eGFR BLACK RACES 19 (>60); eGFR NON BLACK RACES 15 (>60)
--- NOTE | 2017-05-27 11:58 | CT ---
HISTORY: CVA, hypertension Study: CT brain without contrast Comparison: 06/28/2016 Technique: Multiple axial images of the brain were obtained from the skull base to the vertex without administra tion of IV contrast. Dose reduction techniques including Automated Exposure Control (AEC) and adjust ment of mA and kV were utilized. Findings: There are chronic infarctions in the right parietal lobe and right occipital lobe. There are addition al scattered hypodensities in the right basal ganglia and left cerebellum suggesting old lacunar infa rcts. There is atrophy and nonspecific white matter hypoattenuation likely related to microvascular i schemic changes. No evidence of acute hemorrhage, midline shift, mass effect or abnormal extra-axial fluid collection. There is prominence of the ventricles and cortical sulci commensurate with volume loss. The soft tissues and osseous structures are unremarkable. The visualized paranasal sinuses ar e clear. IMPRESSION: 1. Chronic right parietal and right occipital infarctions with extensive background microvascular isc hemic changes and atrophy. No acute abnormality identified. Reported By:
--- NOTE | 2017-05-27 12:00 | RAD ---
HISTORY: Hypertension, history of CVA Study: Chest AP portable Comparison: May 16, 2017 Findings: The heart is within normal limits in size. The cora are normal. The lung mitchell are clear. No pleural effusions are identified. The bony thorax is unremarkable. IMPRESSION: Clear chest Reported By:
[2017-05-27] MEDS ORDERED: ASPIRIN 81 MG CHEWTAB PO ONE (12:03)
[2017-05-27] MEDS ORDERED: ASPIRIN ONE (12:06)
[2017-05-27] MEDS: NS 1000 ML 1,000 ML IV SCH ×3 (12:18→21:03)
[2017-05-27] MEDS ORDERED: K-LYTE EFFERVESCENT PO ONE (12:19)
[2017-05-27 12:34] LABS: BILIRUBIN,URINE NEGATIVE (NEGATIVE); BLOOD/HEMOGLOBIN,URINE 2+ (NEGATIVE); GLUCOSE, URINE NEGATIVE (NEGATIVE); KETONES,URINE NEGATIVE (NEGATIVE); LEUKOCYTE ESTERASE ,URINE 2+ (NEGATIVE); NITRITES,URINE POSITIVE (NEGATIVE); PROTEIN,URINE 4+ (NEGATIVE); UROBILINOGEN,URINE NORMAL (NORMAL)
[2017-05-27 12:47] LABS: APPEARANCE,URINE HAZY (CLEAR); BACTERIA,URINE 4+ /HPF (NEGATIVE); COLOR,URINE YELLOW (YELLOW); RBC,URINE 0-5 /HPF (NEGATIVE); SQUAMOUS EPITHELIAL CELL,UR NEGATIVE /HPF (NEGATIVE)
[2017-05-27] MEDS ORDERED: NS 1000 ML 1,000 ML IV SCH (13:00)
[2017-05-27] MEDS ORDERED: K-LYTE EFFERVESCENT ONE (13:17)
[2017-05-27] MEDS: ROCEPHIN 1 GM IV PREMIX 1 GM/50 ML IV.SOLN. IV SCH (13:37)
[2017-05-27] MEDS: COREG TAB 12.5 MG PO SCH ×2 (14:47→23:00)
[2017-05-27] MEDS: NORVASC TAB 5 MG PO SCH (14:48)
[2017-05-27] MEDS: BENADRYL CAP 50 MG PO SCH ×2 (16:42→21:10)
[2017-05-27 18:07] LABS: CKMB % 4.9 % (<4); CREATINE KINASE 33 Units/L (26-192); CREATINE KINASE MB 1.6 ng/mL (0-4.0); TROPONIN I < 0.02 ng/mL (0-1.5)
[2017-05-27] MEDS: VISTARIL PO PRN (19:28)
[2017-05-27] MEDS: LYRICA CAP 100 MG PO SCH (21:09)
[2017-05-27] MEDS: ZANTAC PO SCH (21:10)
[2017-05-27] MEDS: TYLENOL 325 MG TAB PO PRN (22:41)
[2017-05-27 23:18] LABS: CKMB % 6.3 % (<4); CREATINE KINASE 30 Units/L (26-192); CREATINE KINASE MB 1.9 ng/mL (0-4.0); TROPONIN I < 0.02 ng/mL (0-1.5)
[2017-05-28 06:11] LABS: ALANINE AMINOTRANSFERASE 14 Units/L (12-78); ALBUMIN 2.5 g/dL (3.4-5.0); ALKALINE PHOSPHATASE 55 Units/L (46-116); ASPARTATE AMINO TRANSFERASE 14 Units/L (15-37); BLOOD UREA NITROGEN 42 mg/dL (7-18); CALCIUM 11.3 mg/dL (8.5-10.1); CARBON DIOXIDE 21.6 mmol/L (21-32); CHLORIDE 107 mmol/L (98-107); CHOL/HDL RATIO 2.3 (0.0-5.0); CHOLESTEROL 112 mg/dL (0-200); COR CA(FOR HYPOALB) 12.5 mg/dL (8.5-10.1); CREATININE 3.28 mg/dL (0.55-1.02); HDL CHOLESTEROL 48 mg/dL (40-60); MAGNESIUM 1.7 mg/dL (1.7-2.9); SODIUM 140 mmol/L (136-145); TOTAL PROTEIN 5.9 g/dL (6.4-8.2); TRIGLYCERIDES 115 mg/dL (0-150); eGFR BLACK RACES 18 (>60); eGFR NON BLACK RACES 15 (>60)
[2017-05-28 06:15] LABS: BASOPHILS # (AUTO) 0.1 X10^3/uL (0.0-0.1); BASOPHILS % (AUTO) 0.7 % (0.2-1.0); EOSINOPHILS # (AUTO) 0.2 x10^3/uL (0.0-0.2); EOSINOPHILS % (AUTO) 1.3 % (0.9-2.9); HEMATOCRIT 29.9 % (36.0-47.0); HEMOGLOBIN 10.1 g/dL (12.0-16.0); LYMPHOCYTES # (AUTO) 5.6 X10^3/uL (1.3-2.9); LYMPHOCYTES % (AUTO) 35.1 % (21.0-51.0); MEAN CORPUSCULAR HEMOGLOBIN 34.4 pg (27.0-34.0); MEAN CORPUSCULAR HGB CONC 33.9 g/dL (33.0-35.0); MEAN CORPUSCULAR VOLUME 101.2 fL (80.0-100.0); MEAN PLATELET VOLUME 9.3 fL (7.4-11.0); MONOCYTES % (AUTO) 6.5 % (0.0-13.0); NEUTROPHILS % (AUTO) 56.4 % (42.0-75.0); PLATELET COUNT 246 X10^3/uL (150.0-450.0); RED BLOOD COUNT 2.95 X10^6/uL (3.5-5.4); RED CELL DISTRIBUTION WIDTH 14.5 % (11.6-16.5)
[2017-05-28] MEDS: NS 1000 ML 1,000 ML IV SCH ×3 (06:16→18:12)
[2017-05-28] MEDS: BENADRYL CAP 50 MG PO SCH ×3 (06:20→21:30)
[2017-05-28] MEDS: ROCEPHIN 1 GM IV PREMIX 1 GM/50 ML IV.SOLN. IV SCH (08:45)
[2017-05-28] MEDS: NORVASC TAB 5 MG PO SCH (08:46)
[2017-05-28] MEDS: ASPIRIN EC 81 MG PO SCH (08:46)
[2017-05-28] MEDS: ZANTAC PO SCH ×2 (08:46→20:31)
[2017-05-28] MEDS: CLARITIN PO SCH (08:46)
[2017-05-28] MEDS: COREG TAB 12.5 MG PO SCH ×2 (08:46→20:31)
[2017-05-28] MEDS: PAXIL PO SCH (08:46)
[2017-05-28] MEDS: LYRICA CAP 100 MG PO SCH ×2 (08:46→20:31)
[2017-05-28] MEDS ORDERED: PAROXETINE HCL 40 MG PO SCH (09:00)
[2017-05-28] MEDS: TYLENOL 325 MG TAB PO PRN ×2 (10:45→17:56)
--- NOTE | 2017-05-28 16:34 | CT ---
CT OF THE CHEST, ABDOMEN AND PELVIS WITHOUT IV CONTRAST HISTORY: Stomach pain. Acute cardiac ischemia. Comparison: None Technique: Non contrast axial images of the chest, abdomen, and pelvis were obtained from the thoraci c inlet to the pubic symphysis. Dose reduction techniques including Automated Exposure Control (AEC) and adjustment of mA and kV were utlized. Findings: The sensitivity for focal lesion detection within the solid abdominal viscera, and mediast inum is diminished without the use of IV contrast. CT chest without contrast: The heart is normal in size. No pericardial effusion. Severe three-vessel coronary artery calcification. Blood pool consistent with anemia. No suspicious mediastinal or axilla ry lymph nodes. No focal consolidations, pleural effusions or pneumothorax. Airways are patent. No suspicious pulmona ry nodules or masses. CT abdomen and pelvis without contrast : Liver and spleen are normal in size and contour. No focal le sions. No ductal dilitation. Gallbladder is present. No calcified gallstones or gallbladder wall thic kening. The pancreas is unremarkable. Adrenal glands are normal. Atrophy of the left kidney. Questionable mild inflammation of the gastric antrum and duodenum. Diverticulosis without diverticuli tis. No abnormal appearing mesenteric or retroperitoneal lymph nodes. No free fluid or fluid collecti ons. The bladder is normal in appearance. Uterus appears to be present. No free fluid or abnormal pelvic l ymph nodes. No aggressive osseous lesions. IMPRESSION: 1. Questionable inflammation of the gastric antrum and proximal duodenum. Correlate with symptoms of peptic ulcer disease. 2. Severe coronary disease and blood pool consistent with anemia. Reported By:
[2017-05-29] MEDS: NS 1000 ML 1,000 ML IV SCH ×4 (01:43→20:46)
[2017-05-29] MEDS: BENADRYL CAP 50 MG PO SCH ×3 (05:20→21:17)
[2017-05-29] MEDS: TYLENOL 325 MG TAB PO PRN (05:20)
[2017-05-29 05:25] LABS: BASOPHILS % (AUTO) 0.3 % (0.2-1.0); EOSINOPHILS # (AUTO) 0.2 x10^3/uL (0.0-0.2); EOSINOPHILS % (AUTO) 1.4 % (0.9-2.9); HEMATOCRIT 25.1 % (36.0-47.0); HEMOGLOBIN 8.5 g/dL (12.0-16.0); LYMPHOCYTES # (AUTO) 4.7 X10^3/uL (1.3-2.9); LYMPHOCYTES % (AUTO) 32.7 % (21.0-51.0); MEAN CORPUSCULAR HEMOGLOBIN 34.8 pg (27.0-34.0); MEAN CORPUSCULAR HGB CONC 33.9 g/dL (33.0-35.0); MEAN CORPUSCULAR VOLUME 102.5 fL (80.0-100.0); MEAN PLATELET VOLUME 9.3 fL (7.4-11.0); MONOCYTES # (AUTO) 0.8 x10^3/uL (0.3-0.8); MONOCYTES % (AUTO) 5.3 % (0.0-13.0); NEUTROPHILS # (AUTO) 8.8 x10^3/uL (2.2-4.8); NEUTROPHILS % (AUTO) 60.3 % (42.0-75.0); PLATELET COUNT 218 X10^3/uL (150.0-450.0); RED BLOOD COUNT 2.45 X10^6/uL (3.5-5.4); RED CELL DISTRIBUTION WIDTH 14.5 % (11.6-16.5); WHITE BLOOD COUNT 14.5 X10^3/uL (3.6-10.0)
[2017-05-29 05:31] LABS: ALANINE AMINOTRANSFERASE 12 Units/L (12-78); ALBUMIN 2.3 g/dL (3.4-5.0); ALKALINE PHOSPHATASE 42 Units/L (46-116); ASPARTATE AMINO TRANSFERASE 11 Units/L (15-37); BLOOD UREA NITROGEN 39 mg/dL (7-18); CALCIUM 8.9 mg/dL (8.5-10.1); CHLORIDE 112 mmol/L (98-107); COR CA(FOR HYPOALB) 10.3 mg/dL (8.5-10.1); CREATININE 2.94 mg/dL (0.55-1.02); SODIUM 142 mmol/L (136-145); TOTAL PROTEIN 5.1 g/dL (6.4-8.2); eGFR BLACK RACES 21 (>60); eGFR NON BLACK RACES 17 (>60)
[2017-05-29] MEDS ORDERED: POTASSIUM CHLORIDE LIQ 20 MEQ UDC PO PRN (08:22)
[2017-05-29] MEDS ORDERED: POTASSIUM CHL 60 MEQ/NS 0.45% 500 ML IV PRN (08:22)
[2017-05-29] MEDS ORDERED: MAGNESIUM SULFATE 1 GM/100 mL PREMIX 1 GM/100 ML BAG IV PRN (08:22)
[2017-05-29] MEDS ORDERED: K-LYTE EFFERVESCENT PO PRN (08:22)
[2017-05-29] MEDS ORDERED: K-RIDER 10 MEQ/NS 100 ML 10 MEQ/100 ML BAG IV PRN (08:22)
[2017-05-29] MEDS ORDERED: MAG-OX TAB PO PRN (08:22)
[2017-05-29] MEDS: ASPIRIN EC 81 MG PO SCH (08:59)
[2017-05-29] MEDS: ZANTAC PO SCH ×2 (08:59→20:42)
[2017-05-29] MEDS: LYRICA CAP 100 MG PO SCH ×2 (09:00→20:42)
[2017-05-29] MEDS: COREG TAB 12.5 MG PO SCH ×2 (09:00→20:42)
[2017-05-29] MEDS: CLARITIN PO SCH (09:00)
[2017-05-29] MEDS: ROCEPHIN 1 GM IV PREMIX 1 GM/50 ML IV.SOLN. IV SCH (09:00)
[2017-05-29] MEDS: PAXIL PO SCH (09:00)
[2017-05-29] MEDS: NORVASC TAB 5 MG PO SCH (09:00)
[2017-05-29] MEDS ORDERED: NS 100 ML IV 100 ML with VENOFER 400 MG IV NR ×2 (10:00)
[2017-05-29] MEDS ORDERED: PHARMACY CONSULT - DOSE _____ XX SCH (10:00)
[2017-05-29] MEDS: CIPRO TAB 500 MG PO SCH ×2 (10:42→20:45)
[2017-05-29] MEDS ORDERED: NS 250 ML IV 250 ML IV ONE (12:06)
[2017-05-29] MEDS: POTASSIUM CHL 40 MEQ/NS 0.45% 500 ML IV PRN (12:22)
[2017-05-29] MEDS ORDERED: PROCRIT or EPOGEN SC NR (13:00)
[2017-05-30] MEDS: TYLENOL 325 MG TAB PO PRN ×3 (01:30→20:38)
[2017-05-30 05:39] LABS: BASOPHILS # (AUTO) 0.1 X10^3/uL (0.0-0.1); BASOPHILS % (AUTO) 0.5 % (0.2-1.0); EOSINOPHILS # (AUTO) 0.2 x10^3/uL (0.0-0.2); EOSINOPHILS % (AUTO) 1.7 % (0.9-2.9); HEMATOCRIT 24.8 % (36.0-47.0); HEMOGLOBIN 8.3 g/dL (12.0-16.0); LYMPHOCYTES # (AUTO) 3.3 X10^3/uL (1.3-2.9); LYMPHOCYTES % (AUTO) 26.1 % (21.0-51.0); MEAN CORPUSCULAR HEMOGLOBIN 34.3 pg (27.0-34.0); MEAN CORPUSCULAR HGB CONC 33.5 g/dL (33.0-35.0); MEAN CORPUSCULAR VOLUME 102.4 fL (80.0-100.0); MEAN PLATELET VOLUME 9.3 fL (7.4-11.0); MONOCYTES # (AUTO) 0.7 x10^3/uL (0.3-0.8); MONOCYTES % (AUTO) 5.9 % (0.0-13.0); NEUTROPHILS # (AUTO) 8.2 x10^3/uL (2.2-4.8); NEUTROPHILS % (AUTO) 65.8 % (42.0-75.0); PLATELET COUNT 208 X10^3/uL (150.0-450.0); RED BLOOD COUNT 2.42 X10^6/uL (3.5-5.4); RED CELL DISTRIBUTION WIDTH 14.8 % (11.6-16.5); WHITE BLOOD COUNT 12.5 X10^3/uL (3.6-10.0)
[2017-05-30 05:52] LABS: ALANINE AMINOTRANSFERASE 13 Units/L (12-78); ALKALINE PHOSPHATASE 37 Units/L (46-116); ASPARTATE AMINO TRANSFERASE 7 Units/L (15-37); BLOOD UREA NITROGEN 34 mg/dL (7-18); CALCIUM 8.4 mg/dL (8.5-10.1); CARBON DIOXIDE 18.7 mmol/L (21-32); CREATININE 2.92 mg/dL (0.55-1.02); SODIUM 145 mmol/L (136-145); TOTAL PROTEIN 4.6 g/dL (6.4-8.2); eGFR BLACK RACES 21 (>60); eGFR NON BLACK RACES 17 (>60)
[2017-05-30] MEDS: BENADRYL CAP 50 MG PO SCH ×3 (05:53→21:05)
[2017-05-30] MEDS: NS 1000 ML 1,000 ML IV SCH ×5 (05:54→21:05)
[2017-05-30 06:15] LABS: CHLORIDE 115 mmol/L (98-107)
[2017-05-30] MEDS: PAXIL PO SCH (09:32)
[2017-05-30] MEDS: LYRICA CAP 100 MG PO SCH ×2 (09:32→20:38)
[2017-05-30] MEDS: ASPIRIN EC 81 MG PO SCH (09:32)
[2017-05-30] MEDS: CIPRO TAB 500 MG PO SCH ×2 (09:32→20:37)
[2017-05-30] MEDS: NORVASC TAB 5 MG PO SCH (09:32)
[2017-05-30] MEDS: ZANTAC PO SCH ×2 (09:33→20:37)
[2017-05-30] MEDS: CLARITIN PO SCH (09:33)
[2017-05-30] MEDS: COREG TAB 12.5 MG PO SCH ×2 (09:33→20:37)
[2017-05-30] MEDS: REQUIP PO SCH ×2 (11:02→20:37)
[2017-05-30] MEDS: COLACE CAP 100 MG PO SCH ×2 (12:17→20:38)
[2017-05-30] MEDS: MILK OF MAGNESIA PO SCH ×2 (12:17→20:37)
[2017-05-30] MEDS: NICOTINE PATCH TD SCH (16:11)
[2017-05-30] MEDS: CHECK PATCH XX SCH (22:39)
[2017-05-31] MEDS: CHECK PATCH XX SCH ×3 (01:31→20:10)
[2017-05-31] MEDS: TYLENOL 325 MG TAB PO PRN ×3 (02:11→20:01)
[2017-05-31] MEDS: VISTARIL PO PRN (02:11)
[2017-05-31] MEDS: NS 1000 ML 1,000 ML IV SCH ×4 (05:05→22:07)
[2017-05-31 05:28] LABS: BASOPHILS # (AUTO) 0.1 X10^3/uL (0.0-0.1); BASOPHILS % (AUTO) 0.6 % (0.2-1.0); EOSINOPHILS # (AUTO) 0.2 x10^3/uL (0.0-0.2); EOSINOPHILS % (AUTO) 1.8 % (0.9-2.9); HEMATOCRIT 25.2 % (36.0-47.0); HEMOGLOBIN 8.6 g/dL (12.0-16.0); LYMPHOCYTES # (AUTO) 2.6 X10^3/uL (1.3-2.9); LYMPHOCYTES % (AUTO) 19.8 % (21.0-51.0); MEAN CORPUSCULAR HEMOGLOBIN 34.7 pg (27.0-34.0); MEAN CORPUSCULAR HGB CONC 34.3 g/dL (33.0-35.0); MEAN PLATELET VOLUME 9.2 fL (7.4-11.0); MONOCYTES # (AUTO) 0.9 x10^3/uL (0.3-0.8); MONOCYTES % (AUTO) 6.8 % (0.0-13.0); NEUTROPHILS # (AUTO) 9.4 x10^3/uL (2.2-4.8); PLATELET COUNT 223 X10^3/uL (150.0-450.0); RED BLOOD COUNT 2.49 X10^6/uL (3.5-5.4); WHITE BLOOD COUNT 13.3 X10^3/uL (3.6-10.0)
[2017-05-31 05:33] LABS: ALANINE AMINOTRANSFERASE 15 Units/L (12-78); ALBUMIN 2.5 g/dL (3.4-5.0); ALKALINE PHOSPHATASE 45 Units/L (46-116); ASPARTATE AMINO TRANSFERASE 12 Units/L (15-37); BLOOD UREA NITROGEN 27 mg/dL (7-18); CALCIUM 8.1 mg/dL (8.5-10.1); CARBON DIOXIDE 22.7 mmol/L (21-32); CHLORIDE 113 mmol/L (98-107); COR CA(FOR HYPOALB) 9.3 mg/dL (8.5-10.1); CREATININE 2.92 mg/dL (0.55-1.02); SODIUM 145 mmol/L (136-145); TOTAL PROTEIN 5.6 g/dL (6.4-8.2); eGFR BLACK RACES 21 (>60); eGFR NON BLACK RACES 17 (>60)
[2017-05-31] MEDS: BENADRYL CAP 50 MG PO SCH ×3 (05:55→22:12)
[2017-05-31] MEDS: POTASSIUM CHL 40 MEQ/NS 0.45% 500 ML IV PRN (06:35)
[2017-05-31] MEDS: COREG TAB 12.5 MG PO SCH ×2 (09:08→20:00)
[2017-05-31] MEDS: FOLIC ACID TAB 1 MG PO SCH ×2 (09:08→20:01)
[2017-05-31] MEDS: NORVASC TAB 5 MG PO SCH (09:08)
[2017-05-31] MEDS: CLARITIN PO SCH (09:08)
[2017-05-31] MEDS: LYRICA CAP 100 MG PO SCH ×2 (09:08→20:00)
[2017-05-31] MEDS: ASPIRIN EC 81 MG PO SCH (09:08)
[2017-05-31] MEDS: PAXIL PO SCH (09:08)
[2017-05-31] MEDS: ZANTAC PO SCH ×2 (09:08→20:01)
[2017-05-31] MEDS: FLONASE NASAL SPRAY ENOSTRIL SCH (09:09)
[2017-05-31] MEDS: VIBRAMYCIN PO SCH ×2 (09:09→20:01)
[2017-05-31] MEDS: NICOTINE PATCH TD SCH (09:09)
[2017-05-31] MEDS: COLACE CAP 100 MG PO SCH (20:00)
[2017-05-31] MEDS: MILK OF MAGNESIA PO SCH (20:00)
[2017-05-31] MEDS: REQUIP PO SCH (20:01)
[2017-05-31] MEDS ORDERED: VALIUM INJ IVP PRN (20:52)
[2017-06-01] MEDS: NS 1000 ML 1,000 ML IV SCH (04:49)
[2017-06-01] MEDS: TYLENOL 325 MG TAB PO PRN ×2 (04:51→09:57)
[2017-06-01] MEDS: BENADRYL CAP 50 MG PO SCH (05:00)
[2017-06-01 05:37] LABS: BASOPHILS # (AUTO) 0.1 X10^3/uL (0.0-0.1); BASOPHILS % (AUTO) 0.5 % (0.2-1.0); EOSINOPHILS # (AUTO) 0.3 x10^3/uL (0.0-0.2); EOSINOPHILS % (AUTO) 2.2 % (0.9-2.9); HEMATOCRIT 22.9 % (36.0-47.0); HEMOGLOBIN 7.7 g/dL (12.0-16.0); LYMPHOCYTES # (AUTO) 3.1 X10^3/uL (1.3-2.9); LYMPHOCYTES % (AUTO) 24.3 % (21.0-51.0); MEAN CORPUSCULAR HEMOGLOBIN 34.2 pg (27.0-34.0); MEAN CORPUSCULAR HGB CONC 33.6 g/dL (33.0-35.0); MEAN CORPUSCULAR VOLUME 101.9 fL (80.0-100.0); MEAN PLATELET VOLUME 9.2 fL (7.4-11.0); MONOCYTES # (AUTO) 0.9 x10^3/uL (0.3-0.8); MONOCYTES % (AUTO) 7.2 % (0.0-13.0); NEUTROPHILS # (AUTO) 8.5 x10^3/uL (2.2-4.8); NEUTROPHILS % (AUTO) 65.8 % (42.0-75.0); PLATELET COUNT 208 X10^3/uL (150.0-450.0); RED BLOOD COUNT 2.25 X10^6/uL (3.5-5.4); RED CELL DISTRIBUTION WIDTH 15.2 % (11.6-16.5); WHITE BLOOD COUNT 12.9 X10^3/uL (3.6-10.0)
[2017-06-01 05:45] LABS: ALANINE AMINOTRANSFERASE 14 Units/L (12-78); ALKALINE PHOSPHATASE 40 Units/L (46-116); ASPARTATE AMINO TRANSFERASE 11 Units/L (15-37); BLOOD UREA NITROGEN 24 mg/dL (7-18); CALCIUM 7.8 mg/dL (8.5-10.1); COR CA(FOR HYPOALB) 9.4 mg/dL (8.5-10.1); CREATININE 2.58 mg/dL (0.55-1.02); MAGNESIUM 1.7 mg/dL (1.7-2.9); SODIUM 147 mmol/L (136-145); TOTAL PROTEIN 4.7 g/dL (6.4-8.2); eGFR BLACK RACES 24 (>60); eGFR NON BLACK RACES 20 (>60)
[2017-06-01 05:46] LABS: HYPOCHROMASIA SLIGHT; PLATELET MORPHOLOGY COMMENT NORMAL (NORMAL)
[2017-06-01 05:59] LABS: CHLORIDE 118 mmol/L (98-107)
[2017-06-01] MEDS: MAALOX or MYLANTA PO PRN ×2 (07:50→11:54)
[2017-06-01] MEDS: PAXIL PO SCH (08:33)
[2017-06-01] MEDS: NORVASC TAB 5 MG PO SCH (08:34)
[2017-06-01] MEDS: ZANTAC PO SCH (08:34)
[2017-06-01] MEDS: ASPIRIN EC 81 MG PO SCH (08:34)
[2017-06-01] MEDS: COREG TAB 12.5 MG PO SCH (08:34)
[2017-06-01] MEDS: VIBRAMYCIN PO SCH (08:34)
[2017-06-01] MEDS: FOLIC ACID TAB 1 MG PO SCH (08:34)
[2017-06-01] MEDS: LYRICA CAP 100 MG PO SCH (08:34)
[2017-06-01] MEDS: CLARITIN PO SCH (08:35)
[2017-06-01] MEDS: NICOTINE PATCH TD SCH (08:35)
[2017-06-01] MEDS: FLONASE NASAL SPRAY ENOSTRIL SCH (08:38)
[2017-06-01] MEDS ORDERED: MVI INJ (ADULT) IV SCH (09:00)
[2017-06-01] MEDS: CHECK PATCH XX SCH (09:50)
[2017-06-01] MEDS: VISTARIL PO PRN (09:59)
[2017-06-01 12:59] VITALS: BP 149/78
== END 2017-06-01 14:20 | disposition home or self-care (01) | DRG 690 ==
LOC: ER 10:46 → MED/SURG 14:37
PROVIDERS: ADMIT Obstetrics & Gynecology Obstetrics; ATTEND Obstetrics & Gynecology Obstetrics
DX: N39.0 Urinary tract infection, site not specified (principal); R44.2 Other hallucinations; R41.82 Altered mental status, unspecified; R06.02 Shortness of breath; E83.52 Hypercalcemia; I10 Essential (primary) hypertension; N28.9 Disorder of kidney and ureter, unspecified; B96.29 Other Escherichia coli [E. coli] as the cause of diseases classified elsewhere; I25.89 Other forms of chronic ischemic heart disease; R26.89 Other abnormalities of gait and mobility
CPT/HCPCS: 36415; 70450; 71045; 71250; 74176; 80053; 80061; 80307; 81001; 82306; 82542; 82550; 82553; 82607; 82728; 82746; 83540; 83605; 83735; 83970; 84132; 84466; 84484; 85025; 85610; 85730; 87040; 87086; 87088; 87186; 93005; 93010; 94760; 96365; 96367; 96374; 97535; 99284; A4222; Q0177; G0434; J0696; J0885; J3360